=== PATIENT | male | born 1945 | race Caucasian/White ===

== ENCOUNTER 2017-10-06 08:04 | Emergency (ER) | payer OTHER ==
[~2017-10-06] VITALS: Ht 172.7 cm; Wt 77.1 kg
[2017-10-06 08:09] VITALS: BP 142/80
--- NOTE | 2017-10-06 08:43 | RADIOLOGY REPORT ---
EXAMINATION: XR CHEST CLINICAL INFORMATION: Fever and productive cough. Evaluate for pneumonia. COMPARISON: Previous chest x-rays most recent October 2013 TECHNIQUE: 2 views of the chest were obtained. FINDINGS: The cardiac and mediastinal contours are normal. The lungs are clear. There is no pleural effusion or pneumothorax. There are degenerative changes of the spine. IMPRESSION: No evidence of pneumonia.
[2017-10-06] MEDS ORDERED: CHERATUSSIN AC118 M1 PO ×2 (09:21→09:23)
[2017-10-06] MEDS ORDERED: TAMIFLU75 M1 PO ×2 (09:21→09:24)
[2017-10-06] MEDS ORDERED: PROAIR HFA8.5 GM INH ×2 (09:21→09:24)
--- NOTE | 2017-10-06 09:22 | ED INFLUENZA/URI COMPLAINT ---
History of Present Illness General Chief Complaint: Upper Respiratory Sx/Fever Stated Complaint: BAD COUGH, "I HAVE A BAD HEAD COLD" Source: patient, family, old records Exam Limitations: no limitations Vital Signs & Intake/Output Vital Signs & Intake/Output Vital Signs Date Time Temp Pulse Resp B/P B/P Pulse O2 O2 Flow FiO2 Mean Ox Delivery Rate 10/06 0940 101.3 10/06 0809 101.3 105 15 142/80 95 Room Air Room Air Allergies Coded Allergies: MDX - Apple (APPLE) (ITCHY THROAT 10/06/17) Uncoded Allergies: PEACHES (UNKNOWN REACTION 10/15/13) Reconcile Medications Albuterol Sulfate (Proair Hfa) 90 MCG HFA.AER.AD 2 PUF INH Q4-6 PRN PRN bronchitis Codeine Phosphate/Guaifenesi (Cheratussin AC Syrup) 10 MG-100 MG/5 ML LIQUID 5 -10 ML PO Q6P PRN cough Oseltamivir Phosphate (Tamiflu) 75 MG CAPSULE 1 CAP PO BID influenza Triage Note: PT TO ED FOR C/C OF PRODUCTIVE YELLOW COUGH X 1 WEEK. SAW A WALK IN AND GIVEN TESSALON PEARLS WITHOUT RELIEF. 101.3 IN TRIAGE. INCREASED URINARY FREQUENCY AND 3/10 PERIUMBILICAL ABD PAIN. Triage Nurses Notes Reviewed? yes Onset: Last week Duration: day(s):, constant, continues in ED, getting worse Timing: recent history Severity: moderate Prior Episodes/Possible Cause: illness exposure No Modifying Factors: none Associated Symptoms: cough, fever/chills, lightheadedness, muscle aches, nasal congestion, nasal drainage HPI: 1 week prior to admission patient complains of decreased appetite harsh cough he was seen and prescribed Tessalon. 2 days prior to admission he complains of chills continued cough myalgia. He denies fever vomiting diarrhea chest pain shortness of breath headache dysuria rash bleeding. Past History Travel History Traveled to [place] past 21 day No Medical History Any Pertinent Medical History? 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 No Review of Systems Review of Systems Constitutional: Reports: see HPI, chills, malaise. EENTM: Reports: see HPI, nasal congestion. Respiratory: Reports: see HPI, cough. Cardiovascular: Reports: no symptoms. GI: Reports: see HPI, nausea. Genitourinary: Reports: no symptoms. Musculoskeletal: Reports: no symptoms. Skin: Reports: no symptoms. Neurological/Psychological: Reports: no symptoms. Hematologic/Endocrine: Reports: no symptoms. Immunologic/Allergic: Reports: no symptoms. All Other Systems: Reviewed and Negative Physical Exam Physical Exam General Appearance: well developed/nourished, alert, awake, anxious, mild distress Head: atraumatic, normal appearance Eyes: Bilateral: normal appearance, PERRL, EOMI. Ears, Nose, Throat: moist mucous membrane, nasal congestion, nasal drainage, pharyngeal erythema Neck: normal inspection, supple, full range of motion, trachea midline, lymphadenopathy (R), lymphadenopathy (L) Respiratory: normal breath sounds, chest non-tender, no respiratory distress, quiet respiration, lungs clear Cardiovascular: regular rate/rhythm, normal peripheral pulses, norml femoral pulses equa Peripheral Pulses: 4+ carotid (R), 4+ carotid (L) Gastrointestinal: normal bowel sounds, soft, non-tender, no organomegaly Back: normal inspection, normal range of motion, no vertebral tenderness Extremities: normal inspection, normal capillary refill, normal range of motion, no edema Neurologic/Psych: no motor/sensory deficits, awake, alert, oriented x 3, normal gait, normal mood/affect, kiln stoker II-XII nml as tested Reflexes: 2+: bicep (R), bicep (L). Skin: intact, normal color, warm/dry Lymphatic: adenopathy Core Measures Sepsis Present: No Sepsis Focused Exam Completed? No Progress Differential Diagnosis: influenza, otitis, pharyngitis, sinusitis Plan of Care: Orders Procedure Date/time Status URINALYSIS 10/06 820 Complete RAPID VIRAL INFLUENZA A 10/06 812 Complete VIRAL CULTURE 10/06 812 Active Current Medications Sig/Adams Start time Last Medication Dose Stop Time Status Admin Oseltamivir Phosphate 75 MG ONCE ONE 10/06 929 CAN (Tamiflu 75MG) 10/06 930 Laboratory Tests 10/06/17827: Urine Color YEL, Urine Clarity CLEAR, Urine pH 6.0, Ur Specific [place] 1.025, Urine Protein TRACE H, Urine Ketones 40 H, Urine Nitrite NEG, Urine Bilirubin NEG, Urine Urobilinogen 0.2, Ur Leukocyte Esterase NEG, Ur Microscopic SEDIMENT EXAMINED, Urine RBC 1-3, Urine WBC RARE, Ur Epithelial Cells RARE, Urine Mucus FEW, Urine Hemoglobin SMALL H, Urine Glucose NEG 10/06/17 0813: Virus Culture Pending Microbiology 10/06 814 NASOPHARYN: Influenza Virus A & B Rapid Smear - COMP INFLUENZA TYPE B Diagnostic Imaging: Viewed by Me: Radiology Read. Discussed w/RAD: Radiology Read. CXR Impression: no acute abnormality, no infiltrates Initial ED EKG: none Departure Departure Time of Disposition: 919 Disposition: HOME OR SELF CARE Condition: Stable Clinical Impression Primary Impression: Influenza B Referrals: Otilio FRY,Shayne Thomas (PCP/Family) Departure Forms: Customer Survey General Discharge Information Prescriptions: Current Visit Scripts Codeine Phosphate/Guaifenesi (Cheratussin AC Syrup) 5-10 ML PO Q6P PRN cough #240 ML Oseltamivir Phosphate (Tamiflu) 1 CAP PO BID #10 CAP Albuterol Sulfate (Proair Hfa) 2 PUF INH Q4-6 PRN PRN bronchitis #1 INHAL
== END 2017-10-06 09:43 ==
LOC: ERH 08:04
DX: J10.1 Influenza due to other identified influenza virus with other respiratory manifestations (principal)
CPT/HCPCS: 71046; 81001; 87804; 87804-59

== ENCOUNTER 2017-10-23 06:54 | Inpatient (IN) | payer OTHER ==
[~2017-10-23] VITALS: Ht 177.8 cm; Wt 72.6 kg
[~2017-10-23 06:54] MED LIST: CHERATUSSIN AC118 M1 PO; PROAIR HFA8.5 GM INH; TAMIFLU75 M1 PO
--- NOTE | 2017-10-23 07:15 | ED GI/GU/ABDOMINAL COMPLAINT ---
History of Present Illness General Chief Complaint: General Adult Stated Complaint: ?GI BLEED Source: patient, family, EMS Exam Limitations: no limitations Vital Signs & Intake/Output Vital Signs & Intake/Output Vital Signs Date Time Temp Pulse Resp B/P B/P Pulse O2 O2 Flow FiO2 Mean Ox Delivery Rate 10/23 1017 97.0 82 20 898/51 96 Room Air 10/23 0754 75 99/56 10/23 0754 97 10/23 0737 84 110/66 10/23 0700 95.7 126 16 90/60 97 Room Air Room Air Allergies Coded Allergies: apple (ITCHY THROAT 10/23/17) peach (UNKNOWN 10/23/17) PEACHES - UNKNOWN REACTION Reconcile Medications Clopidogrel Bisulfate (Clopidogrel) 75 MG TABLET 1 TAB PO DAILY BLOOD THINNER (Reported) Isosorbide Mononitrate (Isosorbide Mononitrate ER) 30 MG TAB.ER.24H 1 TAB PO DAILY HEART (Reported) Lisinopril 5 MG TABLET 1 TAB PO DAILY HEART (Reported) Metoprolol Tartrate 25 MG TABLET 1 TAB PO BID HEART (Reported) Rosuvastatin Calcium (Crestor) 10 MG TABLET 1 TAB PO DAILY CHOLESTEROL ( Reported) Triage Note: TRIAGE: PATIENT TO ER FROM HOME REPORTING 4-5 BLACK TARRY STOOLS OVER THE COURSE OF THE NIGHT. PATIENT'S SISTER IS WITH HIM. REPORTING VERY SLIGHT HEADACHE, DENIES ABD PAIN, DENIES N/V. Triage Nurses Notes Reviewed? yes Onset: SINCE 10 PM Duration: hour(s): (SEVERAL) Timing: multiple episodes today Location: [facility] Activities at Onset: rest No Modifying Factors: none Associated Symptoms: weakness, SOB, SYNCOPAL EPISODE HPI: This is a 72-year-old male with history of hypertension, coronary artery disease , approximately 8 cardiac stents presents to the ER with his sister via EMS for chief complaint of weakness, 4 episodes of black stool. Reports mild lower abdominal cramping prior to the first bowel movement but no pain since then. He states he also got himself on the floor of his bedroom this morning. He is unsure what happened. He reports feeling weak, short of breath with exertion. Denies any chest pain or palpitations. He is on aspirin and Plavix. Last dose was last evening. No history of GI bleed in the past before. In addition to aspirin and Plavix was using ibuprofen 400 mg approximately twice a week day for the past week secondary to headache. Last dose of ibuprofen was on Saturday. Patient has never had a GI evaluation, endoscopy or colonoscopy in the past before. He is a nondrinker. Past History Travel History Traveled to [place] past 21 day No Medical History Any Pertinent Medical History? 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 No Review of Systems Review of Systems Constitutional: Reports: weakness. Denies: chills, fever. EENTM: Reports: no symptoms. Respiratory: Reports: short of breath. Denies: cough, sputum production. Cardiovascular: Reports: syncope. Denies: chest pain, palpitations. GI: Denies: abdominal pain. Genitourinary: Reports: no symptoms. Musculoskeletal: Reports: no symptoms. Skin: Reports: no symptoms. Neurological/Psychological: Reports: no symptoms. Hematologic/Endocrine: Reports: bleeding. Denies: bruising, polyuria, polydipsia. Immunologic/Allergic: Denies: splenectomy. All Other Systems: Reviewed and Negative Physical Exam Physical Exam General Appearance: well developed/nourished, alert, awake, mild distress Head: atraumatic, normal appearance Eyes: Bilateral: PERRL, EOMI. Ears, Nose, Throat, Mouth: hearing grossly normal, moist mucous membrane Neck: normal inspection, supple, full range of motion Respiratory: normal breath sounds, chest non-tender, no respiratory distress Cardiovascular: regular rate/rhythm, normal peripheral pulses Gastrointestinal: normal bowel sounds, soft, non-tender Rectal: DARK BROWN OB POSITIVE Back: normal inspection, normal range of motion Extremities: normal range of motion Neurologic/Psych: no motor/sensory deficits, awake, alert, oriented x 3, normal mood/affect Skin: pallor Core Measures ACS in differential dx? Yes Sepsis Present: No Sepsis Focused Exam Completed? No Progress Differential Diagnosis: PUD/GERD, GI BLEED, ANEMIA, SYNCOPE Plan of Care: Orders Procedure Date/time Status CBC WITHOUT DIFFERENTIAL 10/24 0600 Active BASIC ELECTROLYTES PLUS BUN&CR 10/24 0600 Active Nothing by Mouth 10/23 L Active TROPONIN LEVEL 10/23 2000 Active CBC WITHOUT DIFFERENTIAL 10/23 2000 Active EKG 10/23 2000 Active TROPONIN LEVEL 10/23 1400 Active CBC WITHOUT DIFFERENTIAL 10/23 1400 Active EKG 10/23 1400 Active RAPID VIRAL INFLUENZA A 10/23 1002 Active LACTIC ACID 10/23 1000 Active Pathway - chart 10/23 0933 Active Pathway - chart 10/23 0932 Active House Staff 10/23 0932 Active Patient Data 10/23 0932 Active Code Status 10/23 0932 Active Patient Data 10/23 0825 Active ED Holding Orders 10/23 0816 Active Admit to inpatient 10/23 0816 Active Vital Signs 10/23 0816 Active Code Status 10/23 0816 Complete Add-on Test (ER Only) 10/23 0733 Active MISTAKE 10/23 0733 Active Telemetry/Natural Resource Manager 10/23 0733 Active LACTIC ACID 10/23 0721 Complete TROPONIN LEVEL 10/23 0700 Complete PARTIAL THROMBOPLASTIN TIME 10/23 0700 Active PROTHROMBIN TIME 10/23 0700 Active LIPASE 10/23 0700 Complete HEPATIC FUNCTION PANEL 10/23 0700 Complete CBC WITHOUT DIFFERENTIAL 10/23 0700 Complete BASIC METABOLIC PANEL 10/23 0700 Complete AMYLASE 10/23 0700 Complete EKG 10/23 0700 Active TYPE & SCREEN (NOT X-MATCH) 10/23 0700 Complete Intake & Output 10/23 0659 Active VTE Mechanical Prophylaxis 10/23 UNK Active Vital Signs 10/23 UNK Active MISTAKE 10/23 UNK Active Telemetry/Natural Resource Manager 10/23 UNK Active Current Medications Sig/Adams Start time Last Medication Dose Stop Time Status Admin Isosorbide 30 MG DAILY 10/24 1000 CAN Mononitrate (Imdur) Lisinopril 5 MG DAILY 10/24 1000 CAN (Prinivil) Metoprolol Tartrate 25 MG BID 10/23 2200 CAN (Lopressor) Atorvastatin Calcium 10 MG 1700 10/23 1700 AC (Lipitor) Pantoprazole Sodium 40 MG DAILY 10/23 1000 AC (Protonix) Acetaminophen 650 MG Q6P PRN 10/23 0945 AC (Tylenol) Acetaminophen 1,000 MG Q6P PRN 10/23 0945 AC (Ofirmev) Oxycodone/ 1 TAB Q6P PRN 10/23 0945 AC Acetaminophen (Percocet) Sodium Chloride 1,000 ML ONCE ONE 10/23 0945 AC (Normal Saline 0.9%) 10/23 2304 Sodium Chloride 1,000 ML ONCE ONE 10/23 0815 AC 10/23 (Normal Saline 0.9%) 10/23 1454 0832 Laboratory Tests 10/23/17 0721: Anion Gap 11, Estimated GFR > 60, BUN/Creatinine Ratio 76.7 H, Glucose 156 H, Lactic Acid 3.0 H, Calcium 8.8, Total Bilirubin 0.5, Direct Bilirubin 0.2, AST 18, ALT 22, Alkaline Phosphatase 54, Troponin I 0.01, Total Protein 4.9 L, Albumin 2.8 L, Amylase 70, Lipase 249, CBC w Diff NO MAN DIFF REQ, RBC 3.13 L, MCV 96.2 H, MCH 32.5 H, MCHC 33.8, RDW 14.0, MPV 8.0, Gran % 90.7 H, Lymphocytes % 6.3 L, Monocytes % 2.8, Eosinophils % 0.1, Basophils % 0.1, Absolute Granulocytes 9.7 H, Absolute Lymphocytes 0.7 L, Absolute Monocytes 0.3, Absolute Eosinophils 0, Absolute Basophils 0 Microbiology 10/23 1002 NASOPHARYN: Influenza Virus A & B Rapid Smear - ORD PATIENT WILL BE ADMITTED FOR GI BLEED/SYNCOPE TO TELE. D/W DR CORRALES IN ED. ADMITTED TO HOSPITALIST. Diagnostic Imaging: Viewed by Me: Radiology Read. Discussed w/RAD: Radiology Read. CXR Impression: PATIENT: TARA SAMS PRESENT AGE: 72 PATIENT ACCOUNT NO: [id number] : 43 LOCATION: [facility] ORDERING PHYSICIAN: Jorge Gotti MD SERVICE DATE: 10/23/17 EXAM TYPE: RAD - XRY- PORTABLE CHEST XRAY EXAMINATION: XR PORTABLE CHEST CLINICAL INFORMATION: GI bleed COMPARISON: 10/06/2017 TECHNIQUE: Portable frontal view of the chest was obtained. FINDINGS: Lungs are clear. No focal consolidation or mass. Normal pulmonary vascularity. No pleural effusion or pneumothorax. Normal heart size. Regional skeleton intact. IMPRESSION: No acute pulmonary disease. DICTATED BY: Adiel Jimenez MD DATE/TIME DICTATED:10/23/17738 PLATE CORRECTOR:NAOMI DATE/TIME TRANSCRIBED:10/23/17738 CONFIDENTIAL, DO NOT COPY WITHOUT APPROPRIATE AUTHORIZATION. <Electronically signed in Other Vendor System> SIGNED BY: Adiel Jimenez MD 10/23/1743 Initial ED EKG: NSR, LAD Departure Departure Time of Disposition: 808 Disposition: STILL A PATIENT Condition: Stable Clinical Impression Primary Impression: GI bleed Secondary Impressions: Lactic acid acidosis, Syncopal episodes Referrals: Otilio FRY,Shayne Thomas (PCP/Family) Departure Forms: Customer Survey General Discharge Information Admission Note Spoke With: Amy FRY,Petrona Documentation of Exam: Documentation of any treatments & extenuating circumstances including Concerns Regarding Discharge (functional status, medication knowledge or non-compliance, living conditions, etc.) that warrant an admission rather than observation: [ MONITOR H/H, IV FLUIDS, PROTONIX, GI CONSULTATION FOR GI BLEED, SERIAL EKG/ TROPONIN, CARDIOLOGY EVALUATION
[2017-10-23 07:32] LABS: ABSOLUTE BASOPHIL COUNT 0 /CUMM (0.0-0.2); ABSOLUTE EOSINOPHIL COUNT 0 /CUMM (0.0-0.7); ABSOLUTE GRANULOCYTE CT 9.7 /CUMM (1.4-6.5); ABSOLUTE LYMPH COUNT 0.7 /CUMM (1.2-3.4); ABSOLUTE MONOCYTE COUNT 0.3 /CUMM (0.10-0.60); BASOPHIL % 0.1 % (0.0-2.0); EOSINOPHIL % 0.1 % (0-5); HEMATOCRIT 30.1 % (42-52); MEAN CORPUSCULAR HGB 32.5 PG (27.0-31.0); MEAN CORPUSCULAR HGB CONC 33.8 G/DL (33.0-37.0); MEAN CORPUSCULAR VOLUME 96.2 FL (80.0-94.0); RED BLOOD CELL CT 3.13 /CUMM (4.70-6.10); WHITE BLOOD CELL COUNT 10.7 /CUMM (4.8-10.8)
--- NOTE | 2017-10-23 07:43 | RADIOLOGY REPORT ---
EXAMINATION: XR PORTABLE CHEST CLINICAL INFORMATION: GI bleed COMPARISON: 10/06/2017 TECHNIQUE: Portable frontal view of the chest was obtained. FINDINGS: Lungs are clear. No focal consolidation or mass. Normal pulmonary vascularity. No pleural effusion or pneumothorax. Normal heart size. Regional skeleton intact. IMPRESSION: No acute pulmonary disease.
[2017-10-23 07:58] LABS: PLATELET COUNT 320 /CUMM (130-400)
[2017-10-23 07:59] LABS: GRANULOCYTE % 90.7 % (42.2-75.2)
[2017-10-23] MEDS ORDERED: METOPROLOL TART25 M1 PO (08:09)
[2017-10-23] MEDS ORDERED: ISOSORBIDE MONO30 M1 PO (08:09)
[2017-10-23] MEDS ORDERED: CLOPIDOGREL75 M1 PO (08:09)
[2017-10-23] MEDS ORDERED: LISINOPRIL5 M1 PO (08:10)
[2017-10-23] MEDS ORDERED: CRESTOR10 M1 PO (08:10)
--- NOTE | 2017-10-23 09:29 | History & Physical ---
Narendra Gastelum 10/23/17 0928: General Information and HPI MD Statement: I have seen and personally examined TARA SAMS and documented this H&P. The patient is a 72 year old M who presented with a patient stated chief complaint of black tarry stools since last evening. Source of Information: patient, family Exam Limitations: no limitations History of Present Illness: This is a 72-year-old male with past medical history significant for coronary artery disease status post bare metal stents 4, on dual antiplatelet agents aspirin and Plavix since 1995, hypertension, hyperlipidemia presented to the [facility] emergency department for evaluation of black tarry stools since last evening. Patient reports 5 episodes of black colored tarry stools since last evening. Prior to that stool color was normal. He denied any nausea, vomiting, hematemesis, hematochezia, bright red blood per rectum. Also reports lower abdominal cramps associated with defecation. Patient was admitted to [facility] in October 2013 for syncope, melena, and anemia. Underwent endoscopy which showed gastroparesis, gastric polyp, large blood clot in the duodenal bulb. Never underwent colonoscopy. Flexible sigmoidoscopy was done many years back and he was found to have hemorrhoids. Patient also reports decreased appetite and weight loss of 10 pounds in last 2 weeks. Patient reports generalized weakness and lightheadedness. According to him, had an episode of syncope last night. He was found on the floor after losing consciousness. This was unwitnessed syncope. According to him he felt dizzy and lightheaded prior to that event. He denied any seizures, tongue bite, stool or urinary incontinence. No post event confusion. He continues to report lightheadedness and dizziness in the emergency room. Of note patient has been having cough for the last 3 weeks. He was seen in [place] emergency room one week back and was treated for flu with Tamiflu. He has been taking ibuprofen 800 mg twice daily for last week for headaches. Denied any chest pain, palpitations, fever, chills, constipation, diarrhea, nausea, vomiting, gait changes. Review of systems was negative except for above. Denied smoking, alcohol abuse, illicit drug abuse. Family history significant for heart attack father and breast cancer in sister. He lives at home and takes care of himself. 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 Allergies/Medications Allergies: Coded Allergies: apple (ITCHY THROAT 10/23/17) peach (UNKNOWN 10/23/17) PEACHES - UNKNOWN REACTION Home Med list Clopidogrel Bisulfate (Clopidogrel) 75 MG TABLET 1 TAB PO DAILY BLOOD THINNER (Reported) Isosorbide Mononitrate (Isosorbide Mononitrate ER) 30 MG TAB.ER.24H 1 TAB PO DAILY HEART (Reported) Lisinopril 5 MG TABLET 1 TAB PO DAILY HEART (Reported) Metoprolol Tartrate 25 MG TABLET 1 TAB PO BID HEART (Reported) Rosuvastatin Calcium (Crestor) 10 MG TABLET 1 TAB PO DAILY CHOLESTEROL ( Reported) Compliance With Home Meds: GOOD Past History Travel History Traveled to [place] past 21 day No Medical History Neurological: NONE EENT: NONE Cardiovascular: hypertension, hyperlipidemia, myocardial infarction Respiratory: NONE Gastrointestinal: NONE Hepatic: NONE Renal: NONE Musculoskeletal: NONE Psychiatric: NONE Endocrine: NONE Blood Disorders: NONE Cancer(s): NONE 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 Denies: chills, diaphoresis, fever, malaise, unexplained weight loss. EENTM: Denies: blurred vision, double vision, visual changes. Cardiovascular: Reports: syncope. Denies: chest pain, edema, orthopena, palpitations, peripheral edema. Respiratory: Reports: cough, short of breath. Denies: hemoptysis, orthopnea, sputum production, stridor, wheezing. GI: Reports: abdominal pain, melena. Denies: bloating, constipation, diarrhea, nausea, bloody stool, changes in stool. Genitourinary: Denies: discharge, dysuria, frequency, hematuria. Musculoskeletal: Denies: back pain, gout, joint pain, joint swelling. Neurological/Psychological: Denies: anxiety, ataxia. Exam & Diagnostic Data Last 24 Hrs of Vital Signs/I&O Vital Signs Date Time Temp Pulse Resp B/P B/P Pulse O2 O2 Flow FiO2 Mean Ox Delivery Rate 10/23 0754 75 99/56 10/23 0754 97 10/23 0737 84 110/66 10/23 0700 95.7 126 16 90/60 97 Room Air Room Air Intake & Output 10/23 1600 10/23 0800 10/23 0000 Intake Total 1000 Output Total Balance 1000 Intake, IV 1000 Patient 74.843 kg Weight Weight Reported by Patient Measurement Method Physical Exam General Appearance Alert, Oriented X3, Cooperative, No Acute Distress Skin No Rashes, No Breakdown, No Significant Lesion Skin Temp/Moisture Exam: Warm/Dry Sepsis Skin Exam (color): Normal for Ethnicity HEENT Atraumatic, PERRLA, EOMI, Mucous Membr. moist/pink Neck Supple, No JVD Lymphatic Axillary nl, Cervical nl Cardiovascular Regular Rate, Normal S1, Normal S2, No Murmurs Lungs Normal Air Movement Abdomen Normal Bowel Sounds, Soft, No Tenderness Neurological Strength at 5/5 X4 Ext, Sensation Intact, Cranial Nerves 3-12 NL, Reflexes 2+ Extremities No Clubbing, No Cyanosis, No Edema Vascular Normal Pulses, Pulses Symmetrical Sepsis Peripheral Pulse Location: Radial Sepsis Peripheral Pulse Exam: Normal Sepsis Cap Refill Exam: <2 Sec Last 24 Hrs of Labs/Uriel: Laboratory Tests 10/23/17 0721: Anion Gap 11, Estimated GFR > 60, BUN/Creatinine Ratio 76.7 H, Glucose 156 H, Lactic Acid 3.0 H, Calcium 8.8, Total Bilirubin 0.5, Direct Bilirubin 0.2, AST 18, ALT 22, Alkaline Phosphatase 54, Troponin I 0.01, Total Protein 4.9 L, Albumin 2.8 L, Amylase 70, Lipase 249, CBC w Diff NO MAN DIFF REQ, RBC 3.13 L, MCV 96.2 H, MCH 32.5 H, MCHC 33.8, RDW 14.0, MPV 8.0, Gran % 90.7 H, Lymphocytes % 6.3 L, Monocytes % 2.8, Eosinophils % 0.1, Basophils % 0.1, Absolute Granulocytes 9.7 H, Absolute Lymphocytes 0.7 L, Absolute Monocytes 0.3, Absolute Eosinophils 0, Absolute Basophils 0 Diagnostic Data EKG Results EKG, sinus rhythm, rate 87, left axis deviation, bifid P waves, QTC [address]- T wave changes CXR Results Chest x-ray was normal Assessment/Plan Assessment: This is a 72-year-old male with past medical history significant for coronary artery disease status post bare metal stents 4, on dual antiplatelet agents aspirin and Plavix since 1995, hypertension, hyperlipidemia presented to the [facility] emergency department for evaluation of black tarry stools since last evening. Vitals afebrile, heart rate 126, respiratory rate 16, blood pressure 90/60, saturating at 97 on ra. Pertinent labs WBC 10.7, hemoglobin 10.2 and hematocrit 30.1, platelets 320, BUN 16 and creatinine 0.9 XL lactic acid 3 LFTs normal except troponin normal Amylase and lipase normal Received 2 L of normal saline bolus in the emergency room, Protonix. Chest x-ray was normal EKG 87, left axis deviation, no ST-T wave changes. Problem list 1. Upper GI bleed 2. Syncope 3. Lactic acidosis 4. Stable CAD 5. Hypertension 6. Hyperlipidemia Upper GI bleed Patient presented with acute onset of 4-5 episodes of upper GI bleed with black colored tarry stools. Of note he is on dual antiplatelet agents aspirin and Plavix since 1995. Of note patient reports using ibuprofen for last 1 week for headaches. Upper GI bleed/melena most possibly from use of NSAIDS on the top of dual antiplatelet agents. Vitals were stable except for borderline blood pressure. He was found to have elevated BUN and lactic acid at the time of admission. * Upper GI bleed/melena possible differentials gastritis from ibuprofen usage, peptic ulcer disease, AV malformation. * Admit to telemetry floor for continuous telemetry monitoring * vitals every shift * Type and screen was done * Serial monitoring of hemoglobin and hematocrit * 2 large IV bore lines * IV Protonix * IV fluids gentle hydration given his borderline blood pressure * Please hold aspirin and Plavix for now and follow up cardiology recommendations * Please hold using any NSAIDS. * Check orthostatic blood pressure * Maintain hemoglobin above 8 * Stool guaiac-positive in ER * Patient is nothing by mouth pending Gastro evaluation * Please follow-up gastroenterology recommendations * Follow-up CBCs at 2 PM and 8 PM Syncope Patient reports generalized weakness and lightheadedness. According to him, had an episode of syncope last night. He was found on the floor after losing consciousness. This was unwitnessed syncope. According to him he felt dizzy and lightheaded prior to that event. He denied any seizures, tongue bite, stool or urinary incontinence. No post event confusion. He continues to report lightheadedness and dizziness in the emergency room. * Syncope most possibly from active GI bleed and dehydration given his elevated BUN * Telemetry monitoring * Troponin and EKG normal at the time of admission * Serial troponin and EKG 2 PM and 8 PM follow-up * Cardiology consulted with Dr. Gloria * Follow-up orthostatic vitals Lactic acidosis Lactic acid 3 at the time of admission. Mostly from dehydration and GI bleed. Provide gentle hydration and repeat lactic acid. 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 GI bleed 2. Syncopal episodes Core Measures/Misc (05/26) Acute Coronary Syndrome ACS Diagnosis: No Congestive Heart Failure Congestive Heart Failure Diagnosis No Cerebrovascular Accident CVA/TIA Diagnosis: No VTE (View Protocol) VTE Risk Factors No risk factors No Mechanical VTE Prophylaxis d/t Medical Contraindication No VTE Pharm Prophylaxis d/t Bleeding (Active) Sepsis (View protocol) Sepsis Present: No Michael Simon MD 10/23/176: Attending MD Review Statement Attending Statement Attending MD Statement: examined this patient, discuss w/resident/PA/CANCER PROGRAM CONSULTANT, agreed w/resident/PA/CANCER PROGRAM CONSULTANT, discussed with family, reviewed EMR data (avail), reviewed images, amended to note Attending Assessment/Plan: The patient is a 72 yo male with a h/o CAD (s/p bare metal stents - ?since 1995- perhaps more recent one), on [facility] dual antiplatelet therapy (ASA/Plavix) with h/o HTN, HL, and h/o prior duodenal ulcer (EGD with Dr. Bennett), who presented in the [place] ED today with c/o 5 episodes of black tarry stool since last evening. He did note mild lower abdominal cramps. No hematemesis, no bright red blood per rectum. He also described a syncopal episode last evening and he was found on the floor. He noted feeling lightheaded prior to the event. He has endorsed feeling generally weak. He denied any chest pain, dyspnea, or palpitations. The patient had been diagnosed with influenza one week prior and had taken Tamiflu. He admits that he was also taking Ibuprofen 800 mg bid for headaches associated with the flu. Physical Exam: VS: T 95.7, P 126-75, R 16, BP 90/60-110/66, PO 97% HEENT: eyes- PERRLA, EOMI tyesha- moist mucosa, no lesions Neck: no JVD/bruits Chest: clear Cor: RRR (at time of my exam post hydration), nl S1, S2 w/o murm Abd: BS+, soft, NT, - HSM Ext: no edema, pulses 2+ Neuro: alert & oriented x 3, non-focal exam Labs/Tests- as above Impression/Plan: #Acute Gastrointestinal Bleeding- c/w UGI bleed. Most likely recurrent duodenal ulcer. The patient had been taking Ibuprofen x 1 week along with his normal dual platelet drugs (Plavix/ASA). Has h/o bleed in 2013 and was cauterized via EGD by Dr. Bennett. Other possibilities include hemorrhagic gastritis, AVM, other PUDs. Plan: Admit to telemetry floor. IV Protonix bid. Hold ASA/Plavix. Type & Screen for PRBC and follow serial H/H (next at 2 pm today). GI consult- Dr. Bennett to arrange EGD. If begins bleeding profusely will need ICU/emergent EGD. NPO until decision regarding EGD. IV fluids. #S/P Syncopal Event- As above, had syncope last pm. The patient did have orthostatic symptoms and was hypotensive on presentation in ED. No arrhthmia on EKG or monitor at present. No palpitations or evidence of seizures. Neuro exam is non-focal. Plan: Admit to telemetry service and watch for rhythm disturbance. Check orthostatic vital signs. Hold anti-hypertensive meds at present. #CAD- s/p bare metal stents (none recent). No ischemic symptoms or ischemic findings on EKG. Plan: Cardiology consult- hold ASA/Plavix at present. Maintain Hgb > 8. Monitor on telemetry. #Lactic Acidosis- no evidence of sepsis. Plan: Follow-up lactate after hydration.
[2017-10-23 11:35] LABS: PT 14.4 SEC (9.4-12.5); PTT 27 SEC (25-37)
--- NOTE | 2017-10-23 12:09 | Cons- Cardiology ---
General Information and HPI Consulting Request Date of Consult: 10/23/17 Requested By: Amy FRY,Petrona Reason for Consult: GI bleeding. Source of Information: patient, old records Exam Limitations: poor historian History of Present Illness: Mr. dUay Diaz is a 72-year-old male with a history of dyslipidemia and coronary artery disease, s/p CA's x3 (1994, 2000, 2006) with multiple stents placed for which he is maintained on dual antiplatelet therapy (ASA, clopidogrel ) and who presented to the ED with an upper GI bleed. The patient reports having headaches over the past week and admits to taking NSAIDs (ibuprofen 800 mg twice daily), but states that he was asymptomatic with normal bowel habits and color of stool until last evening (10/22/2017) when he began experiencing lower abdominal cramping with defecation and had 5 episodes of black tarry stools. He admits to generalized weakness, lightheadedness, and states that these symptoms preceded an unwitnessed syncopal episode last night after which is was found floor. He denied any postevent confusion, oral trauma or other trauma, or incontinence of urine/stool. He also admits to experiencing a cough over the last 3 weeks and was seen in the ED last week and was [facility] emergency room one week back for this and was treated with Tamiflu for presumed influenza. He denies any chest discomfort, palpitations, shortness of breath, orthopnea, paroxysmal nocturnal dyspnea, or claudication. He also denies any fevers feelings, chills, nausea, vomiting, diarrhea, etc. He lives alone and is independent. Allergies/Medications Allergies: Coded Allergies: apple (ITCHY THROAT 10/23/17) peach (UNKNOWN 10/23/17) PEACHES - UNKNOWN REACTION Home Med List: Clopidogrel Bisulfate (Clopidogrel) 75 MG TABLET 1 TAB PO DAILY BLOOD THINNER (Reported) Isosorbide Mononitrate (Isosorbide Mononitrate ER) 30 MG TAB.ER.24H 1 TAB PO DAILY HEART (Reported) Lisinopril 5 MG TABLET 1 TAB PO DAILY HEART (Reported) Metoprolol Tartrate 25 MG TABLET 1 TAB PO BID HEART (Reported) Rosuvastatin Calcium (Crestor) 10 MG TABLET 1 TAB PO DAILY CHOLESTEROL ( Reported) Current Medications: Current Medications Sig/Adams Start time Last Medication Dose Route Stop Time Status Admin Acetaminophen 650 MG Q6P PRN 10/23 0945 AC PO Acetaminophen 1,000 MG Q6P PRN 10/23 0945 AC IV Atorvastatin Calcium 10 MG 1700 10/23 1700 AC PO Isosorbide 30 MG DAILY 10/24 1000 CAN Mononitrate PO Lisinopril 5 MG DAILY 10/24 1000 CAN PO Metoprolol Tartrate 25 MG BID 10/23 2200 CAN PO Oxycodone/ 1 TAB Q6P PRN 10/23 0945 AC Acetaminophen PO Pantoprazole Sodium 40 MG DAILY 10/23 1000 AC IV Pantoprazole Sodium 0 .STK-MED ONE 10/23 0803 DC IV Pantoprazole Sodium 40 MG ONCE ONE 10/23 0745 DC 10/23 IV 10/23 0746 0804 Sodium Chloride 1,000 ML ONCE ONE 10/23 0945 AC IV 10/23 2304 Sodium Chloride 500 ML BOLUS ONE 10/23 0815 DC 10/23 IV 10/23 0914 0832 Sodium Chloride 1,000 ML ONCE ONE 10/23 0815 AC 10/23 IV 10/23 1454 0832 Sodium Chloride 500 ML BOLUS ONE 10/23 0800 DC 10/23 IV 10/23 0859 0804 Review of Systems Review of Systems: A 14 point system review was obtained and was noncontributory, other than as above. 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 Surgical History Surgical History: non-contributory Family History Relations & Conditions If Any: FATHER FH: heart attack SISTER FH: breast cancer Psychosocial History Services at Home: None Smoking Status: Never Smoked ETOH Use: occasional use Illicit Drug Use: denies illicit drug use Exam & Diagnostic Data Vital Signs and I&O Vital Signs Date Time Temp Pulse Resp B/P B/P Pulse O2 O2 Flow FiO2 Mean Ox Delivery Rate 10/23 1106 97.0 92 18 82/47 96 Room Air 10/23 1017 97.0 82 20 898/51 96 Room Air 10/23 0754 75 99/56 10/23 0754 97 10/23 0737 84 110/66 10/23 0700 95.7 126 16 90/60 97 Room Air Room Air Intake & Output 10/23 0800 10/23 0000 10/22 1600 10/22 0800 10/22 0000 Intake Total 1000 Output Total Balance 1000 Intake, IV 1000 Patient 165 lb Weight Weight Reported by Patient Measurement Method Physical Exam: Well-developed, well-nourished and pale appearing elderly male in no acute distress. Vital signs: See above. HEENT: Normocephalic, atraumatic, EOMI, slightly dry mucous membranes. Neck: No JVD, no bruits. Lungs: Clear to auscultation bilaterally. Heart: S1, S2 (regular) with no murmur, gallop, or rub. Abdomen: Soft, nontender, positive bowel sounds. Extremities: No edema. Labs/Uriel Results: Laboratory Tests 10/23 10/23 1103 0721 Chemistry Sodium (137 - 145 mmol/L) 144 Potassium (3.5 - 5.1 mmol/L) 4.3 Chloride (98 - 107 mmol/L) 112 H Carbon Dioxide (22 - 30 mmol/L) 21 L Anion Gap (5 - 16) 11 BUN (9 - 20 mg/dL) 69 H Creatinine (0.7 - 1.2 mg/dL) 0.9 Estimated GFR (>60 ml/min) > 60 BUN/Creatinine Ratio (7 - 25 %) 76.7 H Glucose (65 - 99 mg/dL) 156 H Lactic Acid (0.7 - 2.1 mmol/L) 1.2 3.0 H Calcium (8.4 - 10.2 mg/dL) 8.8 Total Bilirubin (0.2 - 1.3 mg/dL) 0.5 Direct Bilirubin (< 0.4 mg/dL) 0.2 AST (17 - 59 U/L) 18 ALT (21 - 72 U/L) 22 Alkaline Phosphatase (< 127 U/L) 54 Troponin I (<0.11 ng/ml) 0.01 Total Protein (6.3 - 8.2 g/dL) 4.9 L Albumin (3.5 - 5.0 g/dL) 2.8 L Amylase (30 - 110 U/L) 70 Lipase (23 - 300 U/L) 249 Coagulation PT (9.4 - 12.5 SEC) 14.4 H INR (0.90 - 1.17) 1.38 H APTT (25 - 37 SEC) 27 Hematology CBC w Diff NO MAN DIFF REQ WBC (4.8 - 10.8 /CUMM) 10.7 RBC (4.70 - 6.10 /CUMM) 3.13 L Hgb (14.0 - 18.0 G/DL) 10.2 L Hct (42 - 52 %) 30.1 L MCV (80.0 - 94.0 FL) 96.2 H MCH (27.0 - 31.0 PG) 32.5 H MCHC (33.0 - 37.0 G/DL) 33.8 RDW (11.5 - 14.5 %) 14.0 Plt Count (130 - 400 /CUMM) 320 MPV (7.4 - 10.4 FL) 8.0 Gran % (42.2 - 75.2 %) 90.7 H Lymphocytes % (20.5 - 51.1 %) 6.3 L Monocytes % (1.7 - 9.3 %) 2.8 Eosinophils % (0 - 5 %) 0.1 Basophils % (0.0 - 2.0 %) 0.1 Absolute Granulocytes (1.4 - 6.5 /CUMM) 9.7 H Absolute Lymphocytes (1.2 - 3.4 /CUMM) 0.7 L Absolute Monocytes (0.10 - 0.60 /CUMM) 0.3 Absolute Eosinophils (0.0 - 0.7 /CUMM) 0 Absolute Basophils (0.0 - 0.2 /CUMM) 0 Diagnostic Data EKG Results 10/23/2017: Sinus rhythm, leftward axis, probable indeterminate age inferior wall CA, borderline T-wave abnormalities in diffuse leads, borderline QT prolongation. CXR Results 10/23/2017: No acute cardiopulmonary process. Assessment/Plan Assessment/Plan [id number] w/ hx HLD & CAD s/p CA's x3 (1994, 2000, 2006) w/ multiple stents placed for which he has maintained on dual antiplatelet therapy (ASA, clopidogrel) and who presented to the ED with an upper GI bleed. Recommendations: * Admit to telemetry, follow-up troponins, follow-up ECG. * Hold antiplatelet therapy for the short-term. * Given extensive cardiac history change in hemoglobin at or above 8.0 g/dl. * GI consultation. * Continue on his other cardiac medications given his extensive history of CAD. * Echocardiogram to reassess left ventricular function, given history of multiple MIs in the past. * Check magnesium, free T4, TSH, glycosylated hemoglobin A1c, etc. * DVT prophylaxis. Consult Acknowledgment - Thank you for your consult request.
[2017-10-23 16:07] LABS: ABSOLUTE BASOPHIL COUNT 0 /CUMM (0.0-0.2); ABSOLUTE EOSINOPHIL COUNT 0 /CUMM (0.0-0.7); ABSOLUTE GRANULOCYTE CT 2.9 /CUMM (1.4-6.5); ABSOLUTE LYMPH COUNT 1.3 /CUMM (1.2-3.4); ABSOLUTE MONOCYTE COUNT 0.4 /CUMM (0.10-0.60); BASOPHIL % 0.8 % (0.0-2.0); EOSINOPHIL % 0.2 % (0-5); GRANULOCYTE % 62.4 % (42.2-75.2); HEMATOCRIT 26.1 % (42-52); MEAN CORPUSCULAR HGB 32.8 PG (27.0-31.0); MEAN CORPUSCULAR HGB CONC 34.2 G/DL (33.0-37.0); MEAN CORPUSCULAR VOLUME 95.9 FL (80.0-94.0); MEAN PLATELET VOLUME 7.9 FL (7.4-10.4); PLATELET COUNT 229 /CUMM (130-400); RBC DISTRIBUTION WIDTH 13.8 % (11.5-14.5); RED BLOOD CELL CT 2.72 /CUMM (4.70-6.10)
[2017-10-23 16:08] LABS: WHITE BLOOD CELL COUNT 4.7 /CUMM (4.8-10.8)
--- NOTE | 2017-10-23 16:39 | Cons- Gastroenterology ---
General Information and HPI Consulting Request Date of Consult: 10/23/17 Requested By: Michael Simon MD Reason for Consult: I was notified mid-morning of a request by the hospitalist service to assess melena vs. dark brown, OB+ stool in a patient on ASA, Plavix, & Ibuprofen. Source of Information: patient, old records Exam Limitations: poor historian, cardiology records elsewhere History of Present Illness: 72 y/o male, poor historian & non-compliant with GI follow-up, remotely seen by myself in inpatient GI consultation for UGI bleed 10/14/13, while on ASA/Plavix. His cardiology records are in the [place] area, as he is followed there by Dr. Mahesh Morales. He sees Dr. Yañez for primary care. The patient is non-HTN, non-DM, HLD with ASHD, post NC x 3. He apparently had NC x 3 in 1994, 2000, & 2006. He had at least 3 bare metal stents placed, one in RCA in 2000, on full strength ASA & Plavix since. Apparently, his last cardiac stent was in 2010 at [facility]. We do not have copies of [facility] cardiac catheterization report. *The patient now stated that he "may have had another stent placed sometime after he was last here in 10/2013," but he was an extremely poor historian. *He may be correct, as apparently, he was transfered to [facility] from [facility] 10/15/13, for a 10/15/13: troponin bump 0.41. The patient was last admitted to [facility] 10/14/13 to 10/15/13, with syncope & melena, requiring transfusion 1u PRBC on 10/14/13 (which the patient could not recall). He required suturing of an eyebrow laceration then. I saw the patient in GI consultation 10/14/13 for melena. 10/14/13: *Upper endoscopy to the second portion of the duodenum with Epinephrine injection, BICAP cautery and clipping x1- ASSESSMENT: 1. Large red clot at the base of the duodenal bulb with normal duodenal sweep. Ampulla not seen. 2. Clot suctioned off base of duodenal bulb with underlying bleeding red spot as the obvious source (i.e.- *Dieulafoy lesion), treated with Epinephrine, BICAP cautery and clipping x1, with cessation of bleed. 3. Incidental patent lower esophageal ring at the Z line at 39 cm, left intact. 4. 2 cm hiatal hernia pouch from 39 to 41 cm, without any Rodriguez erosions. 5. Old blood and food coating a portion of the proximal stomach in the gastric cardia and fundus, 90% of which was cleared, representing possible underlying gastroparesis. 6. 6 mm probable inflammatory gastric polyp in the fundus, left intact, due to active bleeding from the duodenal bulb. *The patient was subsequently transferred to [facility] on 10/15/13 for a troponin elevation. *I do not have any details of that hospitalization & do not know if he had any interventional cardiac procedures then. I had previously advised a stool Ag H. pylori during the 10/2013 [facility] admission, which was never sent. Regarding the questrionable gastroparesis, 01/20: nl TSH 0.789, borderline HgbA1C 6.0. The patient was noncompliant then with a suggested follow-up outpatient EGD in 2 months to recheck the proximal stomach, nor with an outpatient baseline colonoscopy, nor an outpatient gastric scintiscan. The above had been discussed with the patient's ex-, Lani, the patient's daughter, February, & the patient's sister, Xenia Shaw, postoperatively in great detail, on 10/14/13, as per patient request. The patient came to the [facility] ER 10/06/17 with flu-like symptoms, headache, low grade temp, and a dry cough alternating with yellow sputum. 10/06/17: CXR- negative, except DJD. He tested positive for Influenza Type B [place] line & was D/C to home on Tamiflu. Please note, although previously being told never to do so, he took Ibuprofen 800 mg po BID x > 1 week then for the flu, as he "saw a commercial for this". *This was done in conjunction with his ASA & Plavix. He apparently had stopped his PPI sometime in 2013! The patient presented to the [facility] ER 10/23/17 at 6:54 AM, complaining of 4-5 episodes of black tarry stool overnight (he had dark brown, OB+ stool in the ER, per Dr. Rob). Upon arrival, BP 90/60, P 126, R 16, T 95.7 (Tm 99.3), O2 sat RA 97%. His hypotension & tachycardia improved after IVF. He was given IV Protonix (not continuous drip) & IV NS in the ER. His initial H/H (10.2/30.1), were realtively stable compared to his [facility] labs from 4 years prior, but his BUN/Cr ratio was elevated 69/0.9 (* see labs). He denied using any Fe or Pepto Bismol to account for the dark stool. He had generalized weakness and lightheadedness. 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 He denied any seizures, tongue biting, fecal incontinence, urinary incontinence, post-ictal confusion, or recurrent head trauma. He denied any chest pain, shortness of breath, palpitations, fevers, chills, or jaundice. He denied any cigarettes (ex-5-pk yr cigarette smoker, D/C 1961), alcohol, or illicit drug use. He denied any GERD, odynophagia, dysphagia, early satiety, hematemesis, hemoptysis, gum bleeding, epistaxis, abdominal pain, diarrhea, constipation, obstipation, tenesmus, change in stool caliber, or rectal bleeding. He noted decreased appetite over the past couple of weeks, rigidity to the flu, including total was 10 pounds during that period. There was no FHx of any GI Ca, PUD, additional GI disease, or inherited liver disease. *The patient was seen in covering GI consultation by Dr. Gloria, who did not have the latest information from the patient's usual maintenance pipefitter, Dr. Mahesh Morales. I spoke to Dr. Gloria shortly after 5 p.m. on 10/23/17, who will try to obtain the latest cardiac history from Dr. Mahesh Morales. Dr. Gloria agreed with temporarily holding the aspirin and Plavix for now. 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 10/23/17: Admission labs 7:21 a.m.- WBC 10.7 (91% gran, 10 gran Ab), H/H 10.2/ 30.1, MCV 96.2, RDW 14, PLT 320, glucose 156, BUN/Cr 69/0.9, GFR > 60, Na 144, K 4.3, HCO3 21, AG 11, + lactate 3.0-> 1.2, nl amylase 70, nl lipase 249, Ca 8.8, alb 2.8, glob 2.1, TBil 0.5, DBil 0.2, alk phos 54, AST 18, ALT 22, troponin 0.01 10/23/17: 11:03 a.m.- PT 14.4, INR 1.38 10/23/17: 2:28 p.m.- Mg 1.8, troponin < 0.01, TSH 0.508 10/23/17: 4:00 p.m.- WBC 4.7, H/H 8.9/26.1, MCV 95.9, RDW 13.8, PLT 229 10/23/17: EKG at 7:21 a.m.- NSR @ 87, LAD, borderline prolonged QT interval, NSST inflat. 10/23/17: EKG at 2:35 p.m.- NSR @ 89, otherwise similar to above. 10/23/17: XRY-PORTABLE CHEST XRAY- No acute pulmonary disease. Allergies/Medications Allergies: Coded Allergies: apple (ITCHY THROAT 10/23/17) peach (UNKNOWN 10/23/17) PEACHES - UNKNOWN REACTION Home Med List: Clopidogrel Bisulfate (Clopidogrel) 75 MG TABLET 1 TAB PO DAILY BLOOD THINNER (Reported) Isosorbide Mononitrate (Isosorbide Mononitrate ER) 30 MG TAB.ER.24H 1 TAB PO DAILY HEART (Reported) Lisinopril 5 MG TABLET 1 TAB PO DAILY HEART (Reported) Metoprolol Tartrate 25 MG TABLET 1 TAB PO BID HEART (Reported) Rosuvastatin Calcium (Crestor) 10 MG TABLET 1 TAB PO DAILY CHOLESTEROL ( Reported) Current Medications: Current Medications Sig/Adams Start time Last Medication Dose Route Stop Time Status Admin Acetaminophen 650 MG Q6P PRN 10/23 0945 AC PO Acetaminophen 1,000 MG Q6P PRN 10/23 0945 AC IV Atorvastatin Calcium 10 MG 1700 10/23 1700 AC 10/23 PO 1855 Isosorbide 30 MG DAILY 10/24 1000 CAN Mononitrate PO Lisinopril 5 MG DAILY 10/24 1000 CAN PO Metoprolol Tartrate 25 MG BID 10/23 2199 CAN PO Oxycodone/ 1 TAB Q6P PRN 10/23 0945 AC Acetaminophen PO Pantoprazole Sodium 40 MG BID 10/23 2199 AC IV Pantoprazole Sodium 40 MG DAILY 10/23 1000 DC IV Pantoprazole Sodium 0 .STK-MED ONE 10/23 0803 DC IV Pantoprazole Sodium 40 MG ONCE ONE 10/23 0745 DC 10/23 IV 10/23 0746 0804 Sodium Chloride 1,000 ML ONCE ONE 10/23 0945 AC 10/23 IV 10/23 2304 1405 Sodium Chloride 500 ML BOLUS ONE 10/23 0815 DC 10/23 IV 10/23 0914 0832 Sodium Chloride 1,000 ML ONCE ONE 10/23 0815 DC 10/23 IV 10/23 1454 0832 Sodium Chloride 500 ML BOLUS ONE 10/23 0800 DC 10/23 IV 10/23 0859 0804 Past History Travel History Traveled to [place] past 21 day No Medical History Blood Transfusion Hx: Yes (10/14/13) Neurological: NONE EENT: NONE Cardiovascular: CAD, hypertension, hyperlipidemia, myocardial infarction, syncope Respiratory: NONE Gastrointestinal: upper GI bleed (10/14/13: Dieulafoy in bulb) Hepatic: NONE Renal: NONE Musculoskeletal: falls (syncope) Psychiatric: NONE Endocrine: NONE Blood Disorders: NONE Cancer(s): NONE 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 FH: heart attack SISTER (post breast Ca). Age 72. FH: breast cancer MOTHER, , Age 92; Cause: Old age. BROTHER (ASHD- onset 50's). Age 72. Psychosocial History Where Do You Live? Home Who Do You Live With? ex-, Lani Diaz Services at Home: None Primary Language: Japanese Smoking Status: Former Smoker ETOH Use: occasional use Illicit Drug Use: denies illicit drug use Living Will? no Power of Greenskeeper Supervisor/HCP? no Other Social History: . Lives with ex-, Lani Diaz. Remote 5 pk yr cigarette smoker, D /C 1961. Rare EtOH. No illicit drugs. 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 Functional Ability ADLs Independent: dressing, eating, toileting, bathing. Ambulation: independent IADLs Independent: shopping, housework, finances, food prep, telephone, transportation , medication admin. 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 Review of Systems Constitutional: Reports: weakness (post flu). Denies: chills, diaphoresis, fever, malaise, unexplained weight loss. EENTM: Denies: blurred vision, double vision, visual changes, eye pain, eye drainage, eye tearing, icterus, ear discharge, ear pain, ear redness, hearing changes, nasal congestion, epistaxis, nasal pain, throat pain, throat swelling, mouth pain, tooth pain. 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 Denies: chest pain, edema, orthopena, palpitations, peripheral edema. Respiratory: Reports: cough (dry). Denies: no symptoms, see HPI, hemoptysis, orthopnea, short of breath, sputum production, stridor, wheezing. GI: Reports: melena. Denies: abdominal pain, bloating, constipation, diarrhea, distention, bowel incontinence, nausea, bloody stool, changes in stool, vomiting , steatorrhea. Genitourinary: Denies: discharge, dysuria, frequency, hematuria, hesitation, nocturia, pain, urgency. Musculoskeletal: Denies: back pain, gout, joint pain, joint swelling, muscle pain, muscle stiffness, neck pain. Skin: Denies: cysts, change in skin color, change in hair/nails, dryness, erythema, jaundice, lesions, lymphangitis, lumps, moles, rash. Neurological/Psychological: Denies: anxiety, ataxia, cognitive dysfunction, confusion, depressed, dementia, emotional problems, headache, numbness, paresthesia, pre-existing deficit, petit mal seizures, tingling, tremors, tonic-clonic seizures, unable to move lower ext , unable to move upper ext, weakness. Hematologic/Endocrine: Denies: bruising, bleeding, polyuria, polydipsia. Immunologic/Allergic: Denies: splenectomy, HIV/AIDS, lymphadenopathy. All Other Systems: Reviewed and Negative Exam & Diagnostic Data Vital Signs and I&O Vital Signs Date Time Temp Pulse Resp B/P B/P Pulse O2 O2 Flow FiO2 Mean Ox Delivery Rate 10/23 1817 98.0 88 18 98/83 100 Room Air 10/23 1722 99.3 63 16 103/59 95 10/23 1600 86 16 102/58 Room Air 10/23 1452 97.0 89 18 98/62 96 Room Air 10/23 1333 98.0 94 98/74 10/23 1106 97.0 92 18 82/47 96 Room Air 10/23 1017 97.0 82 20 89/56 96 Room Air 10/23 0754 75 99/56 10/23 0754 97 10/23 0737 84 110/66 10/23 0700 95.7 126 16 90/60 97 Room Air Room Air Intake & Output 10/23 1600 10/23 0400 10/22 1600 10/22 0400 10/21 1600 10/21 0400 Intake Total 1000 Output Total Balance 1000 Intake, IV 1000 Patient 165 lb Weight Weight Reported by Patient Measurement Method Physical Exam: Well-developed well-nourished, pleasant elderly male, in no apparent distress. Sclera anicteric. Conjunctiva slightly pale. Oropharynx clear. Poor dentition.No oral thrush. No aphthous ulcers. There is no adenopathy, thyromegaly, or JVD. No peripheral stigmata of inflammatory bowel disease or chronic liver disease on exam. No spiders on the anterior chest wall. No gynecomastia. No CVA tenderness. Lungs: clear to A&P. No wheezing, rales, or rhonchi. Heart exam: regular rate rhythm, S1 and S2, without any murmur. Abdominal exam: normal bowel sounds, soft belly, nontender, without guarding or rebound. No mass. No organomegaly. No fluid shift. No pulsatile mass. Digital rectal exam: per Dr. Rob in the ER 10/23/17: dark brown stool, OB- positive, no BRB. Extremities: without C, C, or E. No palpable cords. + DJD. Distal pulses 2+ bilaterally. DTRs 2+ bilaterally. Alert and oriented x 3. Right handed. Motor: 5/5 B/L. No focal deficitd. No tremor. No asterixis. Results Pertinent Lab Results: Laboratory Tests 10/23 10/23 10/23 1600 1448 1103 Chemistry Hemoglobin A1c (4.2 - 5.8 %) Pending Lactic Acid (0.7 - 2.1 mmol/L) 1.2 Magnesium (1.6 - 2.3 mg/dL) 1.8 Troponin I (<0.11 ng/ml) < 0.01 TSH (0.270 - 4.200 uIU/mL) 0.508 Coagulation PT (9.4 - 12.5 SEC) 14.4 H INR (0.90 - 1.17) 1.38 H APTT (25 - 37 SEC) 27 Hematology CBC w Diff NO MAN DIFF REQ WBC (4.8 - 10.8 /CUMM) 4.7 L RBC (4.70 - 6.10 /CUMM) 2.72 L Hgb (14.0 - 18.0 G/DL) 8.9 L Hct (42 - 52 %) 26.1 L MCV (80.0 - 94.0 FL) 95.9 H MCH (27.0 - 31.0 PG) 32.8 H MCHC (33.0 - 37.0 G/DL) 34.2 RDW (11.5 - 14.5 %) 13.8 Plt Count (130 - 400 /CUMM) 229 MPV (7.4 - 10.4 FL) 7.9 Gran % (42.2 - 75.2 %) 62.4 Lymphocytes % (20.5 - 51.1 %) 28.5 Monocytes % (1.7 - 9.3 %) 8.1 Eosinophils % (0 - 5 %) 0.2 Basophils % (0.0 - 2.0 %) 0.8 Absolute Granulocytes (1.4 - 6.5 /CUMM) 2.9 Absolute Lymphocytes (1.2 - 3.4 /CUMM) 1.3 Absolute Monocytes (0.10 - 0.60 /CUMM) 0.4 Absolute Eosinophils (0.0 - 0.7 /CUMM) 0 Absolute Basophils (0.0 - 0.2 /CUMM) 0 10/23 0721 Chemistry Sodium (137 - 145 mmol/L) 144 Potassium (3.5 - 5.1 mmol/L) 4.3 Chloride (98 - 107 mmol/L) 112 H Carbon Dioxide (22 - 30 mmol/L) 21 L Anion Gap (5 - 16) 11 BUN (9 - 20 mg/dL) 69 H Creatinine (0.7 - 1.2 mg/dL) 0.9 Estimated GFR (>60 ml/min) > 60 BUN/Creatinine Ratio (7 - 25 %) 76.7 H Glucose (65 - 99 mg/dL) 156 H Lactic Acid (0.7 - 2.1 mmol/L) 3.0 H Calcium (8.4 - 10.2 mg/dL) 8.8 Total Bilirubin (0.2 - 1.3 mg/dL) 0.5 Direct Bilirubin (< 0.4 mg/dL) 0.2 AST (17 - 59 U/L) 18 ALT (21 - 72 U/L) 22 Alkaline Phosphatase (< 127 U/L) 54 Troponin I (<0.11 ng/ml) 0.01 Total Protein (6.3 - 8.2 g/dL) 4.9 L Albumin (3.5 - 5.0 g/dL) 2.8 L Amylase (30 - 110 U/L) 70 Lipase (23 - 300 U/L) 249 Hematology CBC w Diff NO MAN DIFF REQ WBC (4.8 - 10.8 /CUMM) 10.7 RBC (4.70 - 6.10 /CUMM) 3.13 L Hgb (14.0 - 18.0 G/DL) 10.2 L Hct (42 - 52 %) 30.1 L MCV (80.0 - 94.0 FL) 96.2 H MCH (27.0 - 31.0 PG) 32.5 H MCHC (33.0 - 37.0 G/DL) 33.8 RDW (11.5 - 14.5 %) 14.0 Plt Count (130 - 400 /CUMM) 320 MPV (7.4 - 10.4 FL) 8.0 Gran % (42.2 - 75.2 %) 90.7 H Lymphocytes % (20.5 - 51.1 %) 6.3 L Monocytes % (1.7 - 9.3 %) 2.8 Eosinophils % (0 - 5 %) 0.1 Basophils % (0.0 - 2.0 %) 0.1 Absolute Granulocytes (1.4 - 6.5 /CUMM) 9.7 H Absolute Lymphocytes (1.2 - 3.4 /CUMM) 0.7 L Absolute Monocytes (0.10 - 0.60 /CUMM) 0.3 Absolute Eosinophils (0.0 - 0.7 /CUMM) 0 Absolute Basophils (0.0 - 0.2 /CUMM) 0 Imaging/Other Studies: 10/23/17: EKG at 7:21 a.m.- NSR @ 87, LAD, borderline prolonged QT interval, NSST inflat. 10/23/17: EKG at 2:35 p.m.- NSR @ 89, otherwise similar to above. 10/23/17: XRY-PORTABLE CHEST XRAY- No acute pulmonary disease. Assessment/Plan Assessment/Recommendations: 72 y/o male, poor historian & non-compliant with GI follow-up, remotely seen by myself in inpatient GI consultation for UGI bleed 10/14/13, while on ASA/Plavix. His cardiology records are in the [place] area, as he is followed there by Dr. Mahesh Morales. He sees Dr. Yañez for primary care. The patient is non-HTN, non-DM, HLD with ASHD, post NC x 3. He apparently had NC x 3 in 1994, 2000, & 2006. He had at least 3 bare metal stents placed, one in RCA in 2000, on full strength ASA & Plavix since. Apparently, his last cardiac stent was in 2010 at [facility]. We do not have copies of sandoval cardiac catheterization report. *The patient now stated that he "may have had another stent placed sometime after he was last here in 10/2013," but he was an extremely poor historian. *He may be correct, as apparently, he was transfered to [facility] from [facility] 10/15/13, for a 10/15/13: troponin bump 0.41. The patient was last admitted to [facility] 10/14/13 to 10/15/13, with syncope & melena, requiring transfusion 1u PRBC on 10/14/13 (which the patient could not recall). He required suturing of an eyebrow laceration then. I saw the patient in GI consultation 10/14/13 for melena. 10/14/13: *Upper endoscopy to the second portion of the duodenum with Epinephrine injection, BICAP cautery and clipping x1- ASSESSMENT: 1. Large red clot at the base of the duodenal bulb with normal duodenal sweep. Ampulla not seen. 2. Clot suctioned off base of duodenal bulb with underlying bleeding red spot as the obvious source (i.e.- *Dieulafoy lesion), treated with Epinephrine, BICAP cautery and clipping x1, with cessation of bleed. 3. Incidental patent lower esophageal ring at the Z line at 39 cm, left intact. 4. 2 cm hiatal hernia pouch from 39 to 41 cm, without any Rodriguez erosions. 5. Old blood and food coating a portion of the proximal stomach in the gastric cardia and fundus, 90% of which was cleared, representing possible underlying gastroparesis. 6. 6 mm probable inflammatory gastric polyp in the fundus, left intact, due to active bleeding from the duodenal bulb. *The patient was subsequently transferred to [facility] on 10/15/13 for a troponin elevation. *I do not have any details of that hospitalization & do not know if he had any interventional cardiac procedures then. I had previously advised a stool Ag H. pylori during the 10/2013 [facility] admission, which was never sent. Regarding the questrionable gastroparesis, 01/20: nl TSH 0.789, borderline HgbA1C 6.0. The patient was noncompliant then with a suggested follow-up outpatient EGD in 2 months to recheck the proximal stomach, nor with an outpatient baseline colonoscopy, nor an outpatient gastric scintiscan. The above had been discussed with the patient's ex-, Lani, the patient's daughter, Candy, & the patient's sister, Xenia Shaw, postoperatively in great detail, on 10/14/13, as per patient request. The patient came to the [facility] ER 10/06/17 with flu-like symptoms, headache, low grade temp, and a dry cough alternating with yellow sputum. 10/06/17: CXR- negative, except DJD. He tested positive for Influenza Type B Isaac morales & was D/C to home on Tamiflu. Please note, although previously being told never to do so, he took Ibuprofen 800 mg po BID x > 1 week then for the flu, as he "saw a commercial for this". *This was done in conjunction with his ASA & Plavix. He apparently had stopped his PPI sometime in 2013! The patient presented to the [facility] 10/23/17 at 6:54 AM, complaining of 4-5 episodes of black tarry stool overnight (he had dark brown, OB+ stool in the ER, per Dr. Rob). Upon arrival, BP 90/60, P 126, R 16, T 95.7 (Tm 99.3), O2 sat RA 97%. His hypotension & tachycardia improved after IVF. He was given IV Protonix (not continuous drip) & IV NS in the ER. His initial H/H (10.2/30.1), were realtively stable compared to his [facility] labs from 4 years prior, but his BUN/Cr ratio was elevated 69/0.9 (* see labs). He denied using any Fe or Pepto Bismol to account for the dark stool. He had generalized weakness and lightheadedness. 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 He denied any seizures, tongue biting, fecal incontinence, urinary incontinence, post-ictal confusion, or recurrent head trauma. He denied any chest pain, shortness of breath, palpitations, fevers, chills, or jaundice. He denied any cigarettes (ex-5-pk yr cigarette smoker, D/C 1961), alcohol, or illicit drug use. He denied any GERD, odynophagia, dysphagia, early satiety, hematemesis, hemoptysis, gum bleeding, epistaxis, abdominal pain, diarrhea, constipation, obstipation, tenesmus, change in stool caliber, or rectal bleeding. He noted decreased appetite over the past couple of weeks, rigidity to the flu, including total was 10 pounds during that period. There was no FHx of any GI Ca, PUD, additional GI disease, or inherited liver disease. *The patient was seen in covering GI consultation by Dr. Gloria, who did not have the latest information from the patient's usual maintenance pipefitter, Dr. Mahesh Morales. I spoke to Dr. Gloria shortly after 5 p.m. on 10/23/17, who will try to obtain the latest cardiac history from Dr. Mahesh Morales. Dr. Gloria agreed with temporarily holding the aspirin and Plavix for now. 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 10/23/17: Admission labs 7:21 a.m.- WBC 10.7 (91% gran, 10 gran Ab), H/H 10.2/ 30.1, MCV 96.2, RDW 14, PLT 320, glucose 156, BUN/Cr 69/0.9, GFR > 60, Na 144, K 4.3, HCO3 21, AG 11, + lactate 3.0-> 1.2, nl amylase 70, nl lipase 249, Ca 8.8, alb 2.8, glob 2.1, TBil 0.5, DBil 0.2, alk phos 54, AST 18, ALT 22, troponin 0.01 10/23/17: 11:03 a.m.- PT 14.4, INR 1.38 10/23/17: 2:28 p.m.- Mg 1.8, troponin < 0.01, TSH 0.508 10/23/17: 4:00 p.m.- WBC 4.7, H/H 8.9/26.1, MCV 95.9, RDW 13.8, PLT 229 10/23/17: EKG at 7:21 a.m.- NSR @ 87, LAD, borderline prolonged QT interval, NSST inflat. 10/23/17: EKG at 2:35 p.m.- NSR @ 89, otherwise similar to above. 10/23/17: XRY-PORTABLE CHEST XRAY- No acute pulmonary disease. *With elevated BUN/Cr ratio of > 70:1 (although there could be a component of dehydration, post flu), hx melena (currently dark brown stool, OB-positive), past hx Dieulafoy lesion in duodenal bulb -> Epi/BiCAP/clip via 10/14/13: EGD (patient not compliant with suggested follow-up EGD, gastric scintiscan, or baseline colonoscopy afterwards), & recent Ibuprofen (post flu), superimposed on ASA/Plavix, most likely, UGI bleed, although no hematemesis. The strong history of ASHD is noted, post multiple NC x 3 (1994, 2000, 2006), with at least 3 bare metal stents placed, 1 in RCA in 2000. I was under the impression that his last stent was placed in 2010. *Of note, the patient was transferred to [facility] from [facility] 10/15/13, for possible repeat cardiac intervention, with troponin bump then. We do not have details of this. His cardiac records are with Dr. Mahesh Morales. 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 The patient was seen in covering cardiology consultation by Dr. Gloria on admission, who agreed with holding ASA & Plavix for now. He will try to get details of his most recent cardiac workup from Dr. Mahesh Morales. At the moment, the patient looked stable. He was tolerating clears. *SUGGEST: Clears po, then NPO post 11:59 P.M. on Sat10/23/17, for EGD on 10/24/17. The risks & benefits of EGD were discussed with the patient, and he wished to proceed. The procedure will be moved up, if clinically warranted. T&C 2u PRBC. Check CBC Q8-12h for now. With ASHD, keep Hgb > 8. Supplemental O2 as needed. Gentle IVF. Strict I/O's. *Please call GI [facility] if the patient becomes hemodynamically unstable or has active bleeding & move to ICU. Protonix 40 mg IV BID (if clinically warranted, can bump up to continuous drip at 8 mg/hr). No NSAIDS! ASA & Plavix on hold for now, per cardiology. Serial troponin & Echocardiogram, per Dr. Gloria. Awaiting telemetry bed. *Dr. 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 The patient has persistently refused baseline colonoscopy. If there is an UGI source, it will be up to him to schedule an outpatient colonoscopy. If there is no UGI source, would proceed with inpatient colonoscopy, as patient allows. DVT prophylaxis with mechanical ALPS. The above was discussed with the medical house staff, Dr. Simon, & Dr. Gloria. Further GI recommendations to follow, depending on clinical course. Problem List: 1. GI bleed 2. Melena 3. Syncopal episodes 4. History of NC (myocardial infarction) 5. Dieulafoy lesion of duodenum 6. Influenza B Copies To: Faizan FRY,Alfonzo Marcos; Aurora FRY,Michael; Andrew FRY,Mahesh Ford; Otilio FRY,Shayne Thomas Consult Acknowledgment - Thank you for your consult request.
[2017-10-23 21:30] VITALS: BP 98/58
--- NOTE | 2017-10-23 21:44 | Admission Certification ---
Admission Certification Certification Statement - As attending physician, I certify that at the time of - admission, based on clinical presentation, severity of - symptoms, need for further diagnostic testing and - therapeutic interventions, and risk of adverse outcomes - without in-hospital treatment, in my clinical assessment, - this patient requires an acute hospital stay for a minimum - of two nights or longer. I have also considered psychsocial - factors such as support system, advanced age, financial - issues, cognitive issues, and failed out-patient treatments, - past re-admission history, safety of patient, and lack of - compliance as applicable. Specific rationale supporting this admission is: The patient presents post syncopal event and with hypotension/orthostatic symptoms. Black stool c/w UGI bleed. Most likely recurrent DU secondary to Ibuprofen/ASA/Plavix. Will hold ASA/Plavix. IV protonix. Cardiology & GI consults. Maintain Hgb > 8. EGD. Monitor on telemetry. Serial H/H levels.
[2017-10-23 22:29] VITALS: BP 108/60
[2017-10-24 03:15] LABS: ABSOLUTE BASOPHIL COUNT 0 /CUMM (0.0-0.2); ABSOLUTE EOSINOPHIL COUNT 0 /CUMM (0.0-0.7); ABSOLUTE LYMPH COUNT 1.4 /CUMM (1.2-3.4); ABSOLUTE MONOCYTE COUNT 0.4 /CUMM (0.10-0.60); BASOPHIL % 0.3 % (0.0-2.0)
[2017-10-24 03:25] LABS: ABSOLUTE GRANULOCYTE CT 4.4 /CUMM (1.4-6.5); EOSINOPHIL % 0.4 % (0-5); MEAN CORPUSCULAR HGB 32.7 PG (27.0-31.0); MEAN CORPUSCULAR HGB CONC 33.9 G/DL (33.0-37.0); MEAN CORPUSCULAR VOLUME 96.6 FL (80.0-94.0); MEAN PLATELET VOLUME 8.1 FL (7.4-10.4); PLATELET COUNT 226 /CUMM (130-400); RBC DISTRIBUTION WIDTH 14.2 % (11.5-14.5); RED BLOOD CELL CT 2.16 /CUMM (4.70-6.10); WHITE BLOOD CELL COUNT 6.3 /CUMM (4.8-10.8)
[2017-10-24 03:37] LABS: HEMATOCRIT 20.9 % (42-52)
[2017-10-24 06:34] VITALS: BP 102/54
--- NOTE | 2017-10-24 09:27 | PN- Housestaff ---
See Addendum Subjective Follow-up For: Upper GI bleed Subjective: Patient was seen and examined today. Patient had gone down for an EGD. After which he reported a chronic cough for the past few weeks and sore throat. Patient denied any chest pain, palpitations, abdominal pain, fever/chills, nausea/vomiting, constipation/diarrhea. Review of Systems Constitutional: Reports: see HPI. Objective Last 24 Hrs of Vital Signs/I&O Vital Signs Date Time Temp Pulse Resp B/P B/P Pulse O2 O2 Flow FiO2 Mean Ox Delivery Rate 10/24 1440 99.0 97 16 92/50 96 Room Air 10/24 0634 98.6 86 18 102/54 100 Room Air 10/23 2152 Room Air 10/23 2130 98.3 87 18 98/58 99 Room Air 10/23 2057 77 16 103/59 100 Room Air Intake & Output 10/24 1600 10/24 0800 10/24 0000 Intake Total 20 100 200 Output Total 550 325 Balance -530 -225 200 Intake, IV 20 100 Intake, Oral 200 Output, Urine 550 325 Patient 160 lb Weight Weight Reported by Patient Measurement Method Physical Exam General Appearance: Alert, Oriented X3, Cooperative, No Acute Distress HEENT: Atraumatic, PERRLA, EOMI, Mucous Membr. moist/pink Cardiovascular: Regular Rate, Normal S1, Normal S2 Lungs: Clear to Auscultation, Normal Air Movement Abdomen: Normal Bowel Sounds, Soft, No Tenderness Neurological: Normal Speech Extremities: No Clubbing, No Cyanosis, No Edema, Normal Pulses, No Tenderness/ Swelling Current Medications: Current Medications Sig/Adams Start time Last Medication Dose Route Stop Time Status Admin Acetaminophen 650 MG Q6P PRN 10/23 0945 AC PO Acetaminophen 1,000 MG Q6P PRN 10/23 0945 AC IV Atorvastatin Calcium 10 MG 1700 10/23 1700 AC 10/24 PO 1704 Chlorhexidine 1 GM .STK-MED ONE 10/24 1329 DC Gluconate TOP 10/24 1330 Dextrose/Sodium 1,000 ML Q13H 10/24 1715 AC 10/24 Chloride IV 1842 Oxycodone/ 1 TAB Q6P PRN 10/23 0945 AC Acetaminophen PO Pantoprazole Sodium 80 MG Q10H 10/24 1430 AC 10/24 Dextrose/Water 100 ML IV 1704 Pantoprazole Sodium 40 MG BID 10/23 2200 AC 10/24 IV 0840 Patient Medication 1 ED ONE ONE 10/24 1415 DC Teaching ED 10/24 1416 Phenol 2 SPRAY Q2P PRN 10/24 1645 AC 10/24 EXT 1847 Sodium Chloride 1,000 ML ONCE ONE 10/23 0945 DC 10/23 IV 10/23 2304 1405 Last 24 Hrs of Lab/Uriel Results Last 24 Hrs of Labs/Mics: Laboratory Tests 10/24/17 1800: CBC w Diff Pending, WBC Pending, RBC Pending, Hgb Pending, Hct Pending, MCV Pending, MCH Pending, MCHC Pending, RDW Pending, Plt Count Pending, MPV Pending 10/24/17 1015: Anion Gap 10, Estimated GFR > 60, BUN/Creatinine Ratio 55.6 H, CBC w Diff NO MAN DIFF REQ, RBC 2.68 L, MCV 96.4 H, MCH 32.1 H, MCHC 33.3, RDW 13.8, MPV 7.9, Gran % 63.5, Lymphocytes % 29.3, Monocytes % 6.1, Eosinophils % 0.6, Basophils % 0.5, Absolute Granulocytes 2.9, Absolute Lymphocytes 1.3, Absolute Monocytes 0.3, Absolute Eosinophils 0, Absolute Basophils 0 10/24/17 0240: Troponin I 0.02, RBC 2.16 L, MCV 96.6 H, MCH 32.7 H, MCHC 33.9, RDW 14.2, MPV 8.1, Gran % 71.0, Lymphocytes % 21.9, Monocytes % 6.4, Eosinophils % 0.4, Basophils % 0.3, Absolute Granulocytes 4.4, Absolute Lymphocytes 1.4, Absolute Monocytes 0.4, Absolute Eosinophils 0, Absolute Basophils 0 Assessment/Plan Assessment: This is a 72-year-old male with past medical history significant for coronary artery disease status post bare metal stents 4, on dual antiplatelet agents aspirin and Plavix since 1995, hypertension, hyperlipidemia presented to the [facility] emergency department for evaluation of black tarry stools since last evening. Vitals afebrile, heart rate 126, respiratory rate 16, blood pressure 90/60, saturating at 97 on ra. Pertinent labs WBC 10.7, hemoglobin 10.2 and hematocrit 30.1, platelets 320, BUN 16 and creatinine 0.9 XL lactic acid 3 LFTs normal except troponin normal Amylase and lipase normal Received 2 L of normal saline bolus in the emergency room, Protonix. Chest x-ray was normal EKG 87, left axis deviation, no ST-T wave changes. Problem list 1. Upper GI bleed 2. Syncope 3. Lactic acidosis 4. Stable CAD 5. Hypertension 6. Hyperlipidemia Upper GI bleed Patient presented with acute onset of 4-5 episodes of upper GI bleed with black colored tarry stools. Of note he is on dual antiplatelet agents aspirin and Plavix since 1995. Of note patient reports using ibuprofen for last 1 week for headaches. Upper GI bleed/melena most possibly from use of NSAIDS on the top of dual antiplatelet agents. Vitals were stable except for borderline blood pressure. He was found to have elevated BUN and lactic acid at the time of admission. Today patient's H/H dropped to 7.1/20.9. Patient was given 1 pRBC. Repeat H/H: 8.6/25.8. * EGD today showed:duodenal ulcer at the floor of the duodenal bulb, with oozing artery and antral gastritis, hiatal hernia pouch * Admit to telemetry floor for continuous telemetry monitoring * vitals every shift * Type and screen was done * Serial monitoring of hemoglobin and hematocrit * 2 large IV bore lines * Protonix drip today * IV fluids gentle hydration given his borderline blood pressure * Please hold aspirin and Plavix for now and follow up cardiology recommendations * Please hold using any NSAIDS. * Check orthostatic blood pressure * Maintain hemoglobin above 8 * Stool guaiac-positive in ER * Patient is nothing by mouth today per GI recommendations. Patient will be started on a clear liquid diet if his H/H is stable today. Patient on D5W NS @ 75 cc/hr * Follow-up CBCs at 6 PM today Syncope Patient reports generalized weakness and lightheadedness. According to him, had an episode of syncope last night. He was found on the floor after losing consciousness. This was unwitnessed syncope. According to him he felt dizzy and lightheaded prior to that event. He denied any seizures, tongue bite, stool or urinary incontinence. No post event confusion. He continues to report lightheadedness and dizziness in the emergency room. * Syncope most possibly from active GI bleed and dehydration given his elevated BUN * Telemetry monitoring * Troponin and EKG normal * Cardiology consulted with Dr. Gloria * Follow-up orthostatic vitals * ECHO pending Lactic acidosis - resolved Lactic acid 3 at the time of admission. Mostly from dehydration and GI bleed. Provide gentle hydration and repeat lactic acid. * Continue IV fluids normal saline 75 mL per hour History of SD hx of SD 1995 s/p stents Cardiology consulted stable ACS, risk of ACS w/ GI bleed HOLD Plavix HOLD ASA c/w isosorbide and Metoprolol 25 mg po BID Please discuss with automation clerk regarding aspirin and Plavix at the time of discharge HLD c/w Atoruvastatin Hypertension Continue lisinopril 5 mg daily DVT prophylaxis ALPs Full code status npo for now. Advance diet tomorrow if h/h remains stable. Problem List: 1. GI bleed Pain Ratin Pain Location: NA Pain Goal: Remain pain free Pain Plan: Tylenol Tomorrow's Labs & Rationales: CBC BP
[2017-10-24 11:32] LABS: ABSOLUTE BASOPHIL COUNT 0 /CUMM (0.0-0.2); ABSOLUTE EOSINOPHIL COUNT 0 /CUMM (0.0-0.7); ABSOLUTE GRANULOCYTE CT 2.9 /CUMM (1.4-6.5); ABSOLUTE LYMPH COUNT 1.3 /CUMM (1.2-3.4); ABSOLUTE MONOCYTE COUNT 0.3 /CUMM (0.10-0.60); BASOPHIL % 0.5 % (0.0-2.0); EOSINOPHIL % 0.6 % (0-5); GRANULOCYTE % 63.5 % (42.2-75.2); HEMATOCRIT 25.8 % (42-52); MEAN CORPUSCULAR HGB 32.1 PG (27.0-31.0); MEAN CORPUSCULAR HGB CONC 33.3 G/DL (33.0-37.0); MEAN CORPUSCULAR VOLUME 96.4 FL (80.0-94.0); MEAN PLATELET VOLUME 7.9 FL (7.4-10.4); PLATELET COUNT 228 /CUMM (130-400); RBC DISTRIBUTION WIDTH 13.8 % (11.5-14.5); RED BLOOD CELL CT 2.68 /CUMM (4.70-6.10); WHITE BLOOD CELL COUNT 4.6 /CUMM (4.8-10.8)
--- NOTE | 2017-10-24 12:51 | PN- Gastroenterology ---
Assessment/Plan Assessment/Recommendations: 72 y/o male, poor historian & non-compliant with GI follow-up, remotely seen by myself in inpatient GI consultation for UGI bleed 10/14/13, while on ASA/Plavix. His cardiology records are in the [place] area, as he is followed there by Dr. Mahesh Morales. He sees Dr. Yañez for primary care. The patient is non-HTN, non-DM, HLD with ASHD, post RI x 3. He apparently had RI x 3 in 1994, 2000, & 2006. He had at least 3 bare metal stents placed, one in RCA in 2000, on full strength ASA & Plavix since. Apparently, his last cardiac stent was in 2010 at [facility]. We do not have copies of sandoval cardiac catheterization report. *The patient now stated that he "may have had another stent placed sometime after he was last here in 10/2013," but he was an extremely poor historian. *He may be correct, as apparently, he was transfered to [facility] from [place] 10/15/13, for a 10/15/13: troponin bump 0.41. The patient was last admitted to [facility] 10/14/13 to 10/15/13, with syncope & melena, requiring transfusion 1u PRBC on 10/14/13 (which the patient could not recall). He required suturing of an eyebrow laceration then. I saw the patient in GI consultation 10/14/13 for melena. 10/14/13: *Upper endoscopy to the second portion of the duodenum with Epinephrine injection, BICAP cautery and clipping x1- ASSESSMENT: 1. Large red clot at the base of the duodenal bulb with normal duodenal sweep. Ampulla not seen. 2. Clot suctioned off base of duodenal bulb with underlying bleeding red spot as the obvious source (i.e.- *Dieulafoy lesion), treated with Epinephrine, BICAP cautery and clipping x1, with cessation of bleed. 3. Incidental patent lower esophageal ring at the Z line at 39 cm, left intact. 4. 2 cm hiatal hernia pouch from 39 to 41 cm, without any Rodriguez erosions. 5. Old blood and food coating a portion of the proximal stomach in the gastric cardia and fundus, 90% of which was cleared, representing possible underlying gastroparesis. 6. 6 mm probable inflammatory gastric polyp in the fundus, left intact, due to active bleeding from the duodenal bulb. *The patient was subsequently transferred to [facility] on 10/15/13 for a troponin elevation. *I do not have any details of that hospitalization & do not know if he had any interventional cardiac procedures then. I had previously advised a stool Ag H. pylori during the 10/2013 [place] admission, which was never sent. Regarding the questrionable gastroparesis, 01/20: nl TSH 0.789, borderline HgbA1C 6.0. The patient was noncompliant then with a suggested follow-up outpatient EGD in 2 months to recheck the proximal stomach, nor with an outpatient baseline colonoscopy, nor an outpatient gastric scintiscan. The above had been discussed with the patient's ex-, Lani, the patient's daughter, Candy, & the patient's sister, Xenia Shaw, postoperatively in great detail, on 10/14/13, as per patient request. The patient came to the [place] ER 10/06/17 with flu-like symptoms, headache, low grade temp, and a dry cough alternating with yellow sputum. 10/06/17: CXR- negative, except DJD. He tested positive for Influenza Type B [place] line & was D/C to home on Tamiflu. Please note, although previously being told never to do so, he took Ibuprofen 800 mg po BID x > 1 week then for the flu, as he "saw a commercial for this". *This was done in conjunction with his ASA & Plavix. He apparently had stopped his PPI sometime in 2013! The patient presented to the [place] ER 10/23/17 at 6:54 AM, complaining of 4-5 episodes of black tarry stool overnight (he had dark brown, OB+ stool in the ER, per Dr. Rob). Upon arrival, BP 90/60, P 126, R 16, T 95.7 (Tm 99.3), O2 sat RA 97%. His hypotension & tachycardia improved after IVF. He was given IV Protonix (not continuous drip) & IV NS in the ER. His initial H/H (10.2/30.1), were realtively stable compared to his [place] labs from 4 years prior, but his BUN/Cr ratio was elevated 69/0.9 (* see labs). He denied using any Fe or Pepto Bismol to account for the dark stool. He had generalized weakness and lightheadedness. 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 He denied any seizures, tongue biting, fecal incontinence, urinary incontinence, post-ictal confusion, or recurrent head trauma. He denied any chest pain, shortness of breath, palpitations, fevers, chills, or jaundice. He denied any cigarettes (ex-5-pk yr cigarette smoker, D/C 1961), alcohol, or illicit drug use. He denied any GERD, odynophagia, dysphagia, early satiety, hematemesis, hemoptysis, gum bleeding, epistaxis, abdominal pain, diarrhea, constipation, obstipation, tenesmus, change in stool caliber, or rectal bleeding. He noted decreased appetite over the past couple of weeks, rigidity to the flu, including total was 10 pounds during that period. There was no FHx of any GI Ca, PUD, additional GI disease, or inherited liver disease. *The patient was seen in covering GI consultation by Dr. Gloria, who did not have the latest information from the patient's usual title officer, Dr. Mahesh Morales. I spoke to Dr. Gloria shortly after 5 p.m. on 10/23/17, who will try to obtain the latest cardiac history from Dr. Mahesh Morales. Dr. Gloria agreed with temporarily holding the aspirin and Plavix for now. 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 10/23/17: Admission labs 7:21 a.m.- WBC 10.7 (91% gran, 10 gran Ab), H/H 10.2/ 30.1, MCV 96.2, RDW 14, PLT 320, glucose 156, BUN/Cr 69/0.9, GFR > 60, Na 144, K 4.3, HCO3 21, AG 11, + lactate 3.0-> 1.2, nl amylase 70, nl lipase 249, Ca 8.8, alb 2.8, glob 2.1, TBil 0.5, DBil 0.2, alk phos 54, AST 18, ALT 22, troponin 0.01 10/23/17: 11:03 a.m.- PT 14.4, INR 1.38 10/23/17: 2:28 p.m.- Mg 1.8, troponin < 0.01, TSH 0.508 10/23/17: 4:00 p.m.- WBC 4.7, H/H 8.9/26.1, MCV 95.9, RDW 13.8, PLT 229 10/23/17: EKG at 7:21 a.m.- NSR @ 87, LAD, borderline prolonged QT interval, NSST inflat. 10/23/17: EKG at 2:35 p.m.- NSR @ 89, otherwise similar to above. 10/23/17: XRY-PORTABLE CHEST XRAY- No acute pulmonary disease. *With elevated BUN/Cr ratio of > 70:1 (although there could be a component of dehydration, post flu), hx melena (currently dark brown stool, OB-positive), past hx Dieulafoy lesion in duodenal bulb -> Epi/BiCAP/clip via 10/14/13: EGD (patient not compliant with suggested follow-up EGD, gastric scintiscan, or baseline colonoscopy afterwards), & recent Ibuprofen (post flu), superimposed on ASA/Plavix, most likely, UGI bleed, although no hematemesis. The strong history of ASHD is noted, post multiple RI x 3 (1994, 2000, 2006), with at least 3 bare metal stents placed, 1 in RCA in 2000. I was under the impression that his last stent was placed in 2010. *Of note, the patient was transferred to [facility] from [place] 10/15/13, for possible repeat cardiac intervention, with troponin bump then. We do not have details of this. His cardiac records are with Dr. Mahesh Morales. 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 The patient was seen in covering cardiology consultation by Dr. Gloria on admission, who agreed with holding ASA & Plavix for now. He will try to get details of his most recent cardiac workup from Dr. Mahesh Morales. At the moment, the patient looked stable. He was tolerating clears. 10/24/17: 2:40 a.m.- WBC 6.3, H/H 7.1/20.9, MCV 96.6, RDW 14.2, PL 226 10/24/17: 10:15 a.m.- WBC 4.6, H/H 8.6/25.8, PLT 228 (*post 1u PRBC on 10/24/17) , BUN/Cr 50/0.9, GFR > 60, Na 146, K 3.8, HCO3 22, AG 10, troponin 0.02 *As of 10/24/17, the patient remained with low normal BP. He was no longer tachycardic. He was afebrile (Tm 99.3), with O2 sat RA 100%. *He had received 1u PRBC earlier on 10/24/17 at 5:06 a.m.. for H/H 7.1/20.9. He had a dark bowel movement without any red blood. He denied any hematemesis, abdominal pain, nausea, vomiting, chest pain, palpitations, or shortness of breath. He was NPO for EGD. He tolerated clears po on 10/23/17. We are still awaiting the old cardiology records. 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 ASA & Plavix remained on hold , per discussion with Dr. Gloria. His BUN was trending down. He remained on IV Protonix 40 mg BID. He was on telemetry. *SUGGEST: NPO for EGD on 10/24/17. The risks & benefits of EGD were discussed with the patient, and he wished to proceed. The procedure will be moved up, if clinically warranted. T&C 2u PRBC. Check CBC Q8-12h for now. With ASHD, keep Hgb > 8. Supplemental O2 as needed. Gentle IVF. Strict I/O's. *Please call [facility] if the patient becomes hemodynamically unstable or has active bleeding & move to ICU. Protonix 40 mg IV BID (*if clinically warranted, can bump up to continuous drip at 8 mg/hr). No NSAIDS! ASA & Plavix on hold for now, per cardiology. Serial troponin & Echocardiogram, per Dr. Gloria. Admitted to telemetry. *Dr. Gloria is to get further information from the patient's usual title officer, Dr. Mahesh Morales. The patient has persistently refused baseline colonoscopy. If there is an UGI source, it will be up to him to schedule an outpatient screening colonoscopy. If there is no UGI source, would proceed with inpatient colonoscopy, as patient allows. DVT prophylaxis with mechanical ALPS. The above was discussed with the medical house staff, Dr. Simon, & Dr. Gloria. Further GI recommendations to follow, depending on clinical course. Problem List: 1. GI bleed 2. Melena 3. Syncopal episodes 4. History of RI (myocardial infarction) 5. Dieulafoy lesion of duodenum 6. Influenza B Subjective Subjective: 10/24/17: 2:40 a.m.- WBC 6.3, H/H 7.1/20.9, MCV 96.6, RDW 14.2, PL 226 10/24/17: 10:15 a.m.- WBC 4.6, H/H 8.6/25.8, PLT 228 (*post 1u PRBC on 10/24/17) , BUN/Cr 50/0.9, GFR > 60, Na 146, K 3.8, HCO3 22, AG 10, troponin 0.02 *As of 10/24/17, the patient remained with low normal BP. He was no longer tachycardic. He was afebrile (Tm 99.3), with O2 sat RA 100%. *He had received 1u PRBC earlier on 10/24/17 at 5:06 a.m.. for H/H 7.1/20.9. He had a dark bowel movement without any red blood. He denied any hematemesis, abdominal pain, nausea, vomiting, chest pain, palpitations, or shortness of breath. He was NPO for EGD. He tolerated clears po on 10/23/17. We are still awaiting the old cardiology records. 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 ASA & Plavix remained on hold , per discussion with Dr. Gloria. His BUN was trending down. He remained on IV Protonix 40 mg BID. He was on telemetry. Review of Systems: Full 14 point ROS otherwise noncontributory & as above. Review of Systems Constitutional: Reports: weakness (post flu). Denies: chills, diaphoresis, fever, malaise, unexplained weight loss. EENTM: Denies: blurred vision, double vision, visual changes, eye pain, eye drainage, eye tearing, icterus, ear discharge, ear pain, ear redness, hearing changes, nasal congestion, epistaxis, nasal pain, throat pain, throat swelling, mouth pain, tooth pain. Cardiovascular: Reports: syncope (unwitnessed ELECTRO MECHANICAL TECHNOLOGIST). Denies: chest pain, edema, orthopena, palpitations, peripheral edema. Respiratory: Reports: cough (dry). Denies: no symptoms, see HPI, hemoptysis, orthopnea, short of breath, sputum production, stridor, wheezing. GI: Reports: melena. Denies: abdominal pain, bloating, constipation, diarrhea, distention, bowel incontinence, nausea, bloody stool, changes in stool, vomiting, steatorrhea. Genitourinary: Denies: discharge, dysuria, frequency, hematuria, hesitation, nocturia, pain, urgency. Musculoskeletal: Denies: back pain, gout, joint pain, joint swelling, muscle pain, muscle stiffness, neck pain. Skin: Denies: cysts, change in skin color, change in hair/nails, dryness, erythema, jaundice, lesions, lymphangitis, lumps, moles, rash. Neurological/Psychological: Denies: anxiety, ataxia, cognitive dysfunction, confusion, depressed, dementia, emotional problems, headache, numbness, paresthesia, pre-existing deficit, petit mal seizures, tingling, tremors, tonic-clonic seizures, unable to move lower ext , unable to move upper ext, weakness. Hematologic/Endocrine: Denies: bruising, bleeding, polyuria, polydipsia. Immunologic/Allergic: Denies: splenectomy, HIV/AIDS, lymphadenopathy. All Other Systems: Reviewed and Negative Objective Vital Signs and I&Os Vital Signs Date Time Temp Pulse Resp B/P B/P Pulse O2 O2 Flow FiO2 Mean Ox Delivery Rate 10/24 0634 98.6 86 18 102/54 100 Room Air 10/23 2152 Room Air 10/23 2130 98.3 87 18 98/58 99 Room Air 10/23 2057 77 16 103/59 100 Room Air 10/23 1817 98.0 88 18 98/83 100 Room Air 10/23 1722 99.3 63 16 103/59 95 14 1600 86 16 102/58 Room Air 10/23 1452 97.0 89 18 98/62 96 Room Air 10/23 1333 98.0 94 98/74 Intake & Output 10/24 1600 10/24 0400 10/23 1600 10/23 0400 10/22 1600 10/22 0400 Intake Total 099 607 7811 Output Total 325 Balance -797 474 5663 Intake, IV 100 1000 Intake, Oral 200 Output, Urine 325 Patient 160 lb 165 lb Weight Weight Reported by Patient Reported by Patient Measurement Method Physical Exam: Well-developed well-nourished, pleasant elderly male, in no apparent distress. Sclera anicteric. Conjunctiva: less pale. Oropharynx clear. Poor dentition. No oral thrush. No aphthous ulcers. There is no adenopathy, thyromegaly, or JVD. No peripheral stigmata of inflammatory bowel disease or chronic liver disease on exam. No spiders on the anterior chest wall. No gynecomastia. No CVA tenderness. Lungs: clear to A&P. No wheezing, rales, or rhonchi. Heart exam: regular rate rhythm, S1 and S2, without any murmur. Abdominal exam: normal bowel sounds, soft belly, nontender, without guarding or rebound. No mass. No organomegaly. No fluid shift. No pulsatile mass. Digital rectal exam: per Dr. Rob in the ER 10/23/17: dark brown stool, OB-positive, no BRB. Extremities: without C, C, or E. No palpable cords. + DJD. Distal pulses 2+ bilaterally. DTRs 2+ bilaterally. Alert and oriented x 3. Right handed. Motor: 5/5 B/L. No focal deficitd. No tremor. No asterixis. Current Medications: Current Medications Sig/Adams Start time Last Medication Dose Route Stop Time Status Admin Acetaminophen 650 MG Q6P PRN 10/23 0845 AC PO Acetaminophen 1,000 MG Q6P PRN 10/23 0945 AC IV Atorvastatin Calcium 10 MG 1700 10/23 1700 AC 10/23 PO 1855 Oxycodone/ 1 TAB Q6P PRN 10/23 944 AC Acetaminophen PO Pantoprazole Sodium 40 MG BID 10/23 2200 AC 10/24 IV 0840 Pantoprazole Sodium 40 MG DAILY 10/23 1000 DC IV Sodium Chloride 1,000 ML ONCE ONE 10/23 0945 DC 10/23 IV 10/23 2304 1405 Sodium Chloride 1,000 ML ONCE ONE 10/23 0815 DC 10/23 IV 10/23 3012 4982 Results Pertinent Lab Results: Laboratory Tests 10/24 10/24 1015 0240 Chemistry Sodium (137 - 145 mmol/L) 146 H Potassium (3.5 - 5.1 mmol/L) 3.8 Chloride (98 - 107 mmol/L) 115 H Carbon Dioxide (22 - 30 mmol/L) 22 Anion Gap (5 - 16) 10 BUN (9 - 20 mg/dL) 50 H Creatinine (0.7 - 1.2 mg/dL) 0.9 Estimated GFR (>60 ml/min) > 60 BUN/Creatinine Ratio (7 - 25 %) 55.6 H Troponin I (<0.11 ng/ml) 0.02 Hematology CBC w Diff NO MAN DIFF REQ WBC (4.8 - 10.8 /CUMM) 4.6 L 6.3 RBC (4.70 - 6.10 /CUMM) 2.68 L 2.16 L Hgb (14.0 - 18.0 G/DL) 8.6 L 7.1 *L Hct (42 - 52 %) 25.8 L 20.9 L MCV (80.0 - 94.0 FL) 96.4 H 96.6 H MCH (27.0 - 31.0 PG) 32.1 H 32.7 H MCHC (33.0 - 37.0 G/DL) 33.3 33.9 RDW (11.5 - 14.5 %) 13.8 14.2 Plt Count (130 - 400 /CUMM) 228 226 MPV (7.4 - 10.4 FL) 7.9 8.1 Gran % (42.2 - 75.2 %) 63.5 71.0 Lymphocytes % (20.5 - 51.1 %) 29.3 21.9 Monocytes % (1.7 - 9.3 %) 6.1 6.4 Eosinophils % (0 - 5 %) 0.6 0.4 Basophils % (0.0 - 2.0 %) 0.5 0.3 Absolute Granulocytes (1.4 - 6.5 /CUMM) 2.9 4.4 Absolute Lymphocytes (1.2 - 3.4 /CUMM) 1.3 1.4 Absolute Monocytes (0.10 - 0.60 /CUMM) 0.3 0.4 Absolute Eosinophils (0.0 - 0.7 /CUMM) 0 0 Absolute Basophils (0.0 - 0.2 /CUMM) 0 0 10/23 10/23 10/23 1600 1448 1103 Chemistry Hemoglobin A1c (4.2 - 5.8 %) 6.1 H Lactic Acid (0.7 - 2.1 mmol/L) 1.2 Magnesium (1.6 - 2.3 mg/dL) 1.8 Troponin I (<0.11 ng/ml) < 0.01 TSH (0.270 - 4.200 uIU/mL) 0.508 Coagulation PT (9.4 - 12.5 SEC) 14.4 H INR (0.90 - 1.17) 1.38 H APTT (25 - 37 SEC) 27 Hematology CBC w Diff NO MAN DIFF REQ WBC (4.8 - 10.8 /CUMM) 4.7 L RBC (4.70 - 6.10 /CUMM) 2.72 L Hgb (14.0 - 18.0 G/DL) 8.9 L Hct (42 - 52 %) 26.1 L MCV (80.0 - 94.0 FL) 95.9 H MCH (27.0 - 31.0 PG) 32.8 H MCHC (33.0 - 37.0 G/DL) 34.2 RDW (11.5 - 14.5 %) 13.8 Plt Count (130 - 400 /CUMM) 229 MPV (7.4 - 10.4 FL) 7.9 Gran % (42.2 - 75.2 %) 62.4 Lymphocytes % (20.5 - 51.1 %) 28.5 Monocytes % (1.7 - 9.3 %) 8.1 Eosinophils % (0 - 5 %) 0.2 Basophils % (0.0 - 2.0 %) 0.8 Absolute Granulocytes (1.4 - 6.5 /CUMM) 2.9 Absolute Lymphocytes (1.2 - 3.4 /CUMM) 1.3 Absolute Monocytes (0.10 - 0.60 /CUMM) 0.4 Absolute Eosinophils (0.0 - 0.7 /CUMM) 0 Absolute Basophils (0.0 - 0.2 /CUMM) 0 10/23 0721 Chemistry Sodium (137 - 145 mmol/L) 144 Potassium (3.5 - 5.1 mmol/L) 4.3 Chloride (98 - 107 mmol/L) 112 H Carbon Dioxide (22 - 30 mmol/L) 21 L Anion Gap (5 - 16) 11 BUN (9 - 20 mg/dL) 69 H Creatinine (0.7 - 1.2 mg/dL) 0.9 Estimated GFR (>60 ml/min) > 60 BUN/Creatinine Ratio (7 - 25 %) 76.7 H Glucose (65 - 99 mg/dL) 156 H Lactic Acid (0.7 - 2.1 mmol/L) 3.0 H Calcium (8.4 - 10.2 mg/dL) 8.8 Total Bilirubin (0.2 - 1.3 mg/dL) 0.5 Direct Bilirubin (< 0.4 mg/dL) 0.2 AST (17 - 59 U/L) 18 ALT (21 - 72 U/L) 22 Alkaline Phosphatase (< 127 U/L) 54 Troponin I (<0.11 ng/ml) 0.01 Total Protein (6.3 - 8.2 g/dL) 4.9 L Albumin (3.5 - 5.0 g/dL) 2.8 L Amylase (30 - 110 U/L) 70 Lipase (23 - 300 U/L) 249 Hematology CBC w Diff NO MAN DIFF REQ WBC (4.8 - 10.8 /CUMM) 10.7 RBC (4.70 - 6.10 /CUMM) 3.13 L Hgb (14.0 - 18.0 G/DL) 10.2 L Hct (42 - 52 %) 30.1 L MCV (80.0 - 94.0 FL) 96.2 H MCH (27.0 - 31.0 PG) 32.5 H MCHC (33.0 - 37.0 G/DL) 33.8 RDW (11.5 - 14.5 %) 14.0 Plt Count (130 - 400 /CUMM) 320 MPV (7.4 - 10.4 FL) 8.0 Gran % (42.2 - 75.2 %) 90.7 H Lymphocytes % (20.5 - 51.1 %) 6.3 L Monocytes % (1.7 - 9.3 %) 2.8 Eosinophils % (0 - 5 %) 0.1 Basophils % (0.0 - 2.0 %) 0.1 Absolute Granulocytes (1.4 - 6.5 /CUMM) 9.7 H Absolute Lymphocytes (1.2 - 3.4 /CUMM) 0.7 L Absolute Monocytes (0.10 - 0.60 /CUMM) 0.3 Absolute Eosinophils (0.0 - 0.7 /CUMM) 0 Absolute Basophils (0.0 - 0.2 /CUMM) 0 Imaging/Other Studies: 10/23/17: EKG at 7:21 a.m.- NSR @ 87, LAD, borderline prolonged QT interval, NSST inflat. 10/23/17: EKG at 2:35 p.m.- NSR @ 89, otherwise similar to above. 10/23/17: XRY-PORTABLE CHEST XRAY- No acute pulmonary disease.
[2017-10-24 14:40] VITALS: BP 92/50
--- NOTE | 2017-10-24 14:50 | Proc Note Endoscopy ---
Endoscopy Procedure Medical History: unchanged Mental Status: alert/oriented Heart/Lung Eval Prior to Sedation: within normal limits Candidate for Sedation? Yes Procedure Date: 10/24/17 Procedure Type: EGD with clipping of oozing artery in DU at floor of duodenal bulb Gut Dropper: BOOKER CORRALES MD ASA Classification: III Indications: INDX: (*Please refer to extensive GI consult of 10/23/17). 72 y/o male, poor historian, ASHD, post apparent SC x 3 (1994, 2000, & 2006), with hx at least 3 bare metal coronary stents, one in [facility] in 2000- on full strength ASA/Plavix since. ? if last cardiac stent was at [facility] in 2010, or if he had additional stents placed at [facility] in 10/2013 (*await records from patient's c web developer, Dr. Mahesh Morales). The patient was last admitted to [facility] 10/14/13 to 10/15/13, with syncope & melena, requiring transfusion 1u PRBC on 10/14/13. I initially saw him in GI consultation at [place] 10/14/13 for melena. 10/14/13: *Upper endoscopy to the second portion of the duodenum with Epinephrine injection, BICAP cautery and clipping x1- ASSESSMENT: 1. Large red clot at the base of the duodenal bulb with normal duodenal sweep. Ampulla not seen. 2. Clot suctioned off base of duodenal bulb with underlying bleeding red spot as the obvious source (i.e.- *Dieulafoy lesion), treated with Epinephrine, BICAP cautery and clipping x1, with cessation of bleed. 3. Incidental patent lower esophageal ring at the Z line at 39 cm, left intact. 4. 2 cm hiatal hernia pouch from 39 to 41 cm, without any Rodriguez erosions. 5. Old blood and food coating a portion of the proximal stomach in the gastric cardia and fundus, 90% of which was cleared, representing possible underlying gastroparesis. 6. 6 mm probable inflammatory gastric polyp in the fundus, left intact, due to active bleeding from the duodenal bulb. *The patient was subsequently transferred to [facility] on 10/15/13 for a troponin elevation. *I do not have any details of that hospitalization & do not know if he had any interventional cardiac procedures then. I had previously advised a stool Ag H. pylori during the 10/2013 [place] admission, which was never sent. Regarding the questionable gastroparesis, 10/14: nl TSH 0.789, borderline HgbA1C 6.0. The patient was noncompliant then with a suggested follow-up outpatient EGD in 2 months to recheck the proximal stomach, nor with an outpatient baseline colonoscopy, nor an outpatient gastric scintiscan. The above had been discussed with the patient's ex-, Lani, the patient's daughter, February, & the patient's sister, Xenia Shaw, postoperatively in great detail, on 10/14/13, as per patient request. The patient was recently treated with outpt Tamiflu for positive Influenza type B [place] line, diagnosed when he presented to the [place] ER 10/06/17 with flu -like symptoms. Please note, although previously being told never to do so, he took Ibuprofen 800 mg po BID x > 1 week then for the flu, as he "saw a commercial for this". *This was done in conjunction with his ASA & Plavix. He apparently had stopped his PPI sometime in 2013! There was no FHx of any GI Ca, PUD, additional GI disease, or inherited liver disease. He was not compliant with a baseline screening colonoscopy. The patient was admitted to [facility] 10/23/17 for recurrent melena & elevated BUN/Cr ratio, but no active hematemesis. He required an additional 1u PRBC on 10/24/17. 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 His ASA & Plavix were held 10/23/17, & Dr. Gloria is awaiting clarification from Dr. Mahesh Morales about the patient's most recent cardiac history, regarding eventual resumption of anti-platelet agents. *The patient is currently on IV Protonix 40 mg BID. Instrument: diagnostic gastroscope Meds Received: MAC Patient's Tolerance: good Complications: none Extent Reached: second part of duodenum Procedure: Upper endoscopy to the second portion of the duodenum with clipping x 1, was performed with the Olympus high definition videoendoscope, after obtaining informed consent from the patient, with the rn cardiac rehab and pulse oximeter, with the assistance of Dr. Cardenas, of [facility]. A mouthpiece was placed in the usual fashion to protect the patient's teeth. The patient was placed in the left lateral decubitus position and sedated by [facility]. At this point, the endoscope was advanced from the mouth into the esophagus, using direct visualization technique. I did not get a good look at the vocal cords, so as not to induce laryngospasm, as the patient had some reactive airway disease. The proximal esophageal mucosa appeared normal. There were no esophageal webs, lesions, strictures, or ulcers. There was no monilia or vesicles. There was no esophageal ribbing. The Z line was well demarcated at 35 cm, at which point, there was a widely patent, incidental lower esophageal ring, which was left intact. There was a 4 cm sliding hiatal hernia pouch, from 35-39 cm. There were no Rodriguez erosions. No significant esophageal inflammation was seen. There were no ectopic islands, nor gross Milelr's esophagus. There were no esophageal or gastric varices, nor any Jailyn Mars tear. The barrera of the stomach distended normally with air insufflation. Direct and retroflexed views of the stomach were performed. There was nothing endoscopically to suggest gastroparesis or portal gastropathy. The mucosa of the gastric cardia, fundus, lesser curvature, incisura, & body appeared normal, without any gastric ulcers or gastric lesions. The gastric antrum showed some linear erythema, consistent with antral gastritis. Biopsies were deferred, in view of upper GI bleed. The pylorus was patent, without any gastric outlet obstruction or channel ulcer. The duodenal bulb revealed a 1 cm duodenal ulcer at the floor of the bulb, with an oozing artery. There was also an adjacent contralateral clean-based 1 cm superficial duodenal ulcer, which was left intact. The duodenal sweep appeared normal, without any distal ulcerations or angiodysplasias. Bile was seen in the duodenal sweep. I was not able to see the ampulla with the direct-viewing scope. The folds of the second portion of the duodenum were normal in caliber, without any flattening, nodularity, scalloping, or mosaic pattern. After completing the preliminary endoscopic portion of the exam, all attention was focused on the 1 cm duodenal ulcer at the floor of the bulb, with an oozing artery. I was contemplating cauterizing this, to be followed by clipping. At this point, as the patient had reactive airway disease from his recent influenza, he started to cough and transiently desaturate. Based on this, I felt that the most expeditious thing to do was to clip the oozing artery and forego the cautery. A [employer] Resolution 360 Clip was placed over the oozing artery in the 1 cm duodenal ulcer at the floor of the bulb, and deployed in excellent location. The bleeding site was then irrigated with the Yiopsy water jet, observed for several minutes postoperatively, and was stable, with minimal heme. No active bleeding was seen at this point. The patient tolerated the procedure well. Documenting photographs were obtained and placed inside the front cover of the patient's chart. Impression: 1. 1 cm duodenal ulcer at the floor of the duodenal bulb, with oozing artery, successfully treated with [employer] Resolution Clip 1, which deployed in excellent location. Adjacent contralateral clean-based superficial 1 cm duodenal ulcer, left intact. 2. Antral gastritis, biopsies deferred. 3. Patent, incidental lower esophageal ring at the Z line at 35 cm, left intact. 4. 4 cm sliding hiatal hernia pouch, from 35-39 cm. Recommendations: *NPO, except ice chips for now. *Change IV Protonix 40 mg BID to IV Protonix continuous drip @ 8 mg/hr. *No NSAIDS ever! Maintain on telemetry for now, but if patient becomes hemodynamically unstable or actively rebleeds, call GI [facility] & move patient to the ICU. *Check stool Ag H. pylori. *T&C 2u PRBC. *Check CBC Q8-12h for now. *Keep Hgb > 8 (hx ASHD). Strict I/O's. Gentle IV NS. Supplemental O2 as needed. ASA & Plavix on hold for now, per Dr. Gloria, who got further information from the patient's usual c web developer, Dr. Mahesh Morales. Dr. Gloria found out that the patient's last cardiac stent was in 2010. *Therefore, we decided to hold the patient's dual ant-platelet agents x 1 week. The patient has persistently refused baseline colonoscopy. As there is an active UGI source, it will be up to him to schedule an outpatient screening colonoscopy. DVT prophylaxis with mechanical ALPS. The above was previously discussed with the medical house staff, & again with Dr. Simon & Dr. Gloria postop. The above was also discussed with the patient postop. Further GI recommendations to follow, depending on clinical course. CC: Faizan FRY,Alfonzo Marcos; Michael Simon MD; Andrew FRY,Mahesh [place]; Otilio FRY,Shayne Thomas
--- NOTE | 2017-10-24 17:49 | PN- Cardiology ---
Subjective Subjective: Patient earlier underwent upper endoscopy to the second portion of the duodenum with Epinephrine injection, BICAP cautery and clipping x1 by gastroenterology ( Howie Bennett M.D.). Objective Vital Signs and I&Os Vital Signs Date Time Temp Pulse Resp B/P B/P Pulse O2 O2 Flow FiO2 Mean Ox Delivery Rate 10/24 1440 99.0 97 16 92/50 96 Room Air 10/24 0634 98.6 86 18 102/54 100 Room Air 10/23 2152 Room Air 10/23 2130 98.3 87 18 98/58 99 Room Air 10/23 2057 77 16 103/59 100 Room Air 10/23 1817 98.0 88 18 98/83 100 Room Air Intake & Output 10/24 1600 10/24 0800 10/24 0000 10/23 1600 10/23 0800 10/23 0000 Intake Total 20 187 395 2476 Output Total 550 325 Balance -530 -067 966 0041 Intake, IV 20 100 1000 Intake, Oral 200 Output, Urine 550 325 Patient 160 lb 165 lb Weight Weight Reported by Patient Reported by Patient Measurement Method Physical Exam: Well-developed, well-nourished elderly male in no acute distress. Vital signs: See above. Neck: No JVD, no bruits. Lungs: Clear to auscultation. Heart: S1, S2 no murmur, gallop, rub appreciated. Abdomen: Soft, nontender, positive bowel sounds. Extremities: No edema. Current Medications: Current Medications Sig/Adams Start time Last Medication Dose Route Stop Time Status Admin Acetaminophen 650 MG Q6P PRN 10/23 0945 AC PO Acetaminophen 1,000 MG Q6P PRN 10/23 0945 AC IV Atorvastatin Calcium 10 MG 1700 10/23 1700 AC 10/24 PO 1704 Chlorhexidine 1 GM .STK-MED ONE 10/24 1329 DC Gluconate TOP 10/24 1330 Dextrose/Sodium 1,000 ML Q13H 10/24 1715 AC Chloride IV Oxycodone/ 1 TAB Q6P PRN 10/23 0945 AC Acetaminophen PO Pantoprazole Sodium 80 MG Q10H 10/24 1430 AC 10/24 Dextrose/Water 100 ML IV 1704 Pantoprazole Sodium 40 MG BID 10/23 2200 AC 10/24 IV 0840 Patient Medication 1 ED ONE ONE 10/24 1415 DC Teaching ED 10/24 1416 Phenol 2 SPRAY Q2P PRN 10/24 1645 AC EXT Sodium Chloride 1,000 ML ONCE ONE 10/23 0945 DC 10/23 IV 10/23 2304 1405 Results Last 48 Hrs of Labs/Mics: Laboratory Tests 10/24/17 1015: Anion Gap 10, Estimated GFR > 60, BUN/Creatinine Ratio 55.6 H, CBC w Diff NO MAN DIFF REQ, RBC 2.68 L, MCV 96.4 H, MCH 32.1 H, MCHC 33.3, RDW 13.8, MPV 7.9, Gran % 63.5, Lymphocytes % 29.3, Monocytes % 6.1, Eosinophils % 0.6, Basophils % 0.5, Absolute Granulocytes 2.9, Absolute Lymphocytes 1.3, Absolute Monocytes 0.3, Absolute Eosinophils 0, Absolute Basophils 0 10/24/17 0240: Troponin I 0.02, RBC 2.16 L, MCV 96.6 H, MCH 32.7 H, MCHC 33.9, RDW 14.2, MPV 8.1, Gran % 71.0, Lymphocytes % 21.9, Monocytes % 6.4, Eosinophils % 0.4, Basophils % 0.3, Absolute Granulocytes 4.4, Absolute Lymphocytes 1.4, Absolute Monocytes 0.4, Absolute Eosinophils 0, Absolute Basophils 0 10/23/17 1600: CBC w Diff NO MAN DIFF REQ, RBC 2.72 L, MCV 95.9 H, MCH 32.8 H, MCHC 34.2, RDW 13.8, MPV 7.9, Gran % 62.4, Lymphocytes % 28.5, Monocytes % 8.1, Eosinophils % 0.2, Basophils % 0.8, Absolute Granulocytes 2.9, Absolute Lymphocytes 1.3, Absolute Monocytes 0.4, Absolute Eosinophils 0, Absolute Basophils 0 10/23/17 1448: Hemoglobin A1c 6.1 H, Magnesium 1.8, Troponin I < 0.01, TSH 0.508 10/23/17 1103: Lactic Acid 1.2, PT 14.4 H, INR 1.38 H, APTT 27 10/23/17 0721: Anion Gap 11, Estimated GFR > 60, BUN/Creatinine Ratio 76.7 H, Glucose 156 H, Lactic Acid 3.0 H, Calcium 8.8, Total Bilirubin 0.5, Direct Bilirubin 0.2, AST 18, ALT 22, Alkaline Phosphatase 54, Troponin I 0.01, Total Protein 4.9 L, Albumin 2.8 L, Amylase 70, Lipase 249, CBC w Diff NO MAN DIFF REQ, RBC 3.13 L, MCV 96.2 H, MCH 32.5 H, MCHC 33.8, RDW 14.0, MPV 8.0, Gran % 90.7 H, Lymphocytes % 6.3 L, Monocytes % 2.8, Eosinophils % 0.1, Basophils % 0.1, Absolute Granulocytes 9.7 H, Absolute Lymphocytes 0.7 L, Absolute Monocytes 0.3, Absolute Eosinophils 0, Absolute Basophils 0 Assessment/Plan Assessment/Plan [id number] w/ hx HLD & CAD s/p MT's x3 (1994, 2000, 2006) w/ multiple stents placed for which he has maintained on dual antiplatelet therapy (ASA, clopidogrel) and who presented to the ED with an upper GI bleed. Recommendations: * Continue on telemetry. * Hold antiplatelet therapy for the short-term. * Given extensive cardiac history, maintain hemoglobin at or above 8.0 g/dl. * Follow up on GI recommendations. * Continue on his other cardiac medications given his extensive history of CAD. * Obtain echocardiogram to reassess left ventricular function. Continue telemetry? Yes
[2017-10-24 19:25] LABS: ABSOLUTE BASOPHIL COUNT 0 /CUMM (0.0-0.2); ABSOLUTE EOSINOPHIL COUNT 0 /CUMM (0.0-0.7); ABSOLUTE GRANULOCYTE CT 5.9 /CUMM (1.4-6.5); ABSOLUTE LYMPH COUNT 1.2 /CUMM (1.2-3.4); ABSOLUTE MONOCYTE COUNT 0.4 /CUMM (0.10-0.60); BASOPHIL % 0.1 % (0.0-2.0); EOSINOPHIL % 0.1 % (0-5); GRANULOCYTE % 78.8 % (42.2-75.2); HEMATOCRIT 23.4 % (42-52); MEAN CORPUSCULAR HGB 33.1 PG (27.0-31.0); MEAN CORPUSCULAR HGB CONC 34.4 G/DL (33.0-37.0); MEAN CORPUSCULAR VOLUME 96.2 FL (80.0-94.0); MEAN PLATELET VOLUME 7.9 FL (7.4-10.4); PLATELET COUNT 230 /CUMM (130-400); RBC DISTRIBUTION WIDTH 14.2 % (11.5-14.5); RED BLOOD CELL CT 2.43 /CUMM (4.70-6.10)
[2017-10-24 19:36] LABS: WHITE BLOOD CELL COUNT 7.5 /CUMM (4.8-10.8)
[2017-10-24 22:46] VITALS: BP 100/60
[2017-10-25 06:57] VITALS: BP 100/60
--- NOTE | 2017-10-25 07:52 | PN- Housestaff ---
Angelica FRY,Arlen 10/25/17 0752: Subjective Follow-up For: Upper GI bleed s/p EGD and clipping Tele-Events Since Last Visit: Normal sinus rhythm 74-94 Subjective: Patient was seen and examined today. Patient notes some dizziness and lightheadedness. Patient denies any nausea/vomiting, hematemesis. Patient notes that he had 2 black tarry bowel movements. Patient denies any fever/ chills, dysuria/hematuria, chest pain, palpitations, shortness of breath. Patient notes a nonproductive cough and sore throat which has improved with the Chloraseptic [place]. Patient denies any hemoptysis. No acute events overnight. Review of Systems Constitutional: Reports: see HPI. Cardiovascular: Reports: no symptoms. Respiratory: Reports: cough. Gastrointestinal: Reports: see HPI. Genitourinary: Reports: no symptoms. Musculoskeletal: Reports: no symptoms. Skin: Reports: no symptoms. Neurological/Psychological: Reports: no symptoms. Objective Last 24 Hrs of Vital Signs/I&O Vital Signs Date Time Temp Pulse Resp B/P B/P Pulse O2 O2 Flow FiO2 Mean Ox Delivery Rate 10/25 1430 99.0 82 18 112/62 99 Room Air 10/25 0657 98.2 82 20 100/60 98 Room Air 10/24 2246 98.2 92 16 100/60 99 Room Air Intake & Output 10/25 1600 10/25 0800 10/25 0000 Intake Total 910 110 340 Output Total 350 175 600 Balance 560 -65 -260 Intake, Blood 350 Product Intake, IV 80 10 340 Intake, Oral 480 100 0 Number 1 1 Bowel Movements Output, Urine 350 175 600 Physical Exam General Appearance: Alert, Oriented X3, Cooperative Skin: No Rashes Skin Temp/Moisture Exam: Warm/Dry Sepsis Skin Exam (color): Normal for Ethnicity HEENT: Atraumatic, PERRLA, EOMI, Mucous Membr. moist/pink Cardiovascular: Regular Rate, Normal S1, Normal S2 Lungs: Clear to Auscultation, Normal Air Movement Abdomen: Normal Bowel Sounds, Soft, No Tenderness Extremities: No Clubbing, No Cyanosis, No Edema, Normal Pulses, No Tenderness/ Swelling Vascular: Normal Pulses, Pulses Symmetrical Current Medications: Current Medications Sig/Adams Start time Last Medication Dose Route Stop Time Status Admin Acetaminophen 650 MG .STK-MED ONE 02/16 0758 DC PO 10/25 0759 Acetaminophen 650 MG Q6P PRN 10/23 0945 AC 10/25 PO 0758 Acetaminophen 1,000 MG Q6P PRN 10/23 0945 AC IV Atorvastatin Calcium 10 MG 1700 10/23 1700 AC 10/25 PO 1617 Dextrose/Sodium 1,000 ML Q13H 10/24 1715 10/25 Chloride IV 1837 Oxycodone/ 1 TAB Q6P PRN 10/23 0945 AC Acetaminophen PO Pantoprazole Sodium 80 MG Q10H 10/24 1430 AC 10/25 Dextrose/Water 100 ML IV 1335 Pantoprazole Sodium 40 MG BID 10/23 2200 DC 10/24 IV 0840 Phenol 2 SPRAY Q2P PRN 10/24 1645 AC 10/24 EXT 2222 Last 24 Hrs of Lab/Uriel Results Last 24 Hrs of Labs/Mics: Laboratory Tests 10/25/17 1215: Stool H. pylori Ag Pending 10/25/17 0635: Anion Gap 7, Estimated GFR > 60, BUN/Creatinine Ratio 33.3 H, CBC w Diff NO MAN DIFF REQ, RBC 2.09 L, MCV 96.3 H, MCH 32.9 H, MCHC 34.1, RDW 14.9 H, MPV 7.9 , Gran % 67.9, Lymphocytes % 23.2, Monocytes % 7.6, Eosinophils % 1.2, Basophils % 0.1, Absolute Granulocytes 2.5, Absolute Lymphocytes 0.9 L, Absolute Monocytes 0.3, Absolute Eosinophils 0, Absolute Basophils 0 Assessment/Plan Assessment: This is a 72-year-old male with past medical history significant for coronary artery disease status post bare metal stents 4, on dual antiplatelet agents aspirin and Plavix since 1995, hypertension, hyperlipidemia presented to the [facility] emergency department for evaluation of black tarry stools since last evening. Vitals afebrile, heart rate 126, respiratory rate 16, blood pressure 90/60, saturating at 97 on ra. Pertinent labs WBC 10.7, hemoglobin 10.2 and hematocrit 30.1, platelets 320, BUN 16 and creatinine 0.9 XL lactic acid 3 LFTs normal except troponin normal Amylase and lipase normal Received 2 L of normal saline bolus in the emergency room, Protonix. Chest x-ray was normal EKG 87, left axis deviation, no ST-T wave changes. Problem list 1. Upper GI bleed 2. Syncope 3. Lactic acidosis 4. Stable CAD 5. Hypertension 6. Hyperlipidemia Upper GI bleed Patient presented with acute onset of 4-5 episodes of upper GI bleed with black colored tarry stools. Of note he is on dual antiplatelet agents aspirin and Plavix since 1995. Of note patient reports using ibuprofen for last 1 week for headaches. Upper GI bleed/melena most possibly from use of NSAIDS on the top of dual antiplatelet agents. Vitals were stable except for borderline blood pressure. He was found to have elevated BUN and lactic acid at the time of admission. Today patient's H/H dropped to 6.9/20.1. Patient was given 1 pRBC. Repeat H/H: 8.7/25.5. * EGD on 10/24 showed:duodenal ulcer at the floor of the duodenal bulb, with oozing artery and antral gastritis, hiatal hernia pouch * Admit to telemetry floor for continuous telemetry monitoring * vitals every shift * Type and screen was done * Serial monitoring of hemoglobin and hematocrit * 2 large IV bore lines * Protonix drip to continue today * IV fluids gentle hydration given his borderline blood pressure * Please hold aspirin and Plavix for now and follow up cardiology recommendations * Please hold using any NSAIDS. * Check orthostatic blood pressure * Maintain hemoglobin above 8 * Stool guaiac-positive in ER * Patient is to be on a clear liquid diet today per GI. Patient on D5W NS @ 75 cc/hr * Follow-up CBCs at 6AM tomorrow * Per cardiology and GI: restart antiplatelet therapy one week from the BICAP cautery and clipping. Syncope Patient reports generalized weakness and lightheadedness. According to him, had an episode of syncope last night. He was found on the floor after losing consciousness. This was unwitnessed syncope. According to him he felt dizzy and lightheaded prior to that event. He denied any seizures, tongue bite, stool or urinary incontinence. No post event confusion. He continues to report lightheadedness and dizziness in the emergency room. * Syncope most possibly from active GI bleed and dehydration given his elevated BUN * Telemetry monitoring * Troponin and EKG normal * Cardiology consulted with Dr. Gloria * Follow-up orthostatic vitals * ECHO showed LVEF of > 60% with impaired LV relaxation Lactic acidosis - resolved Lactic acid 3 at the time of admission. Mostly from dehydration and GI bleed. Provide gentle hydration and repeat lactic acid. * Continue IV fluids normal saline 75 mL per hour History of [place] hx of [place] 1995 s/p stents Cardiology consulted stable ACS, risk of ACS w/ GI bleed HOLD Plavix HOLD ASA c/w isosorbide and Metoprolol 25 mg po BID HLD c/w Atoruvastatin Hypertension Lisinopril 5 mg daily - held due to acute bleed DVT prophylaxis ALPs Full code status Clear liquid diet Problem List: 1. Anemia 2. GI bleed Pain Ratin Pain Location: n/a Pain Goal: Remain pain free Pain Plan: Tylenol PRN AVOID NSAIDS Tomorrow's Labs & Rationales: CBC BEP Michael Simon MD 10/25/172101: Attending MD Review Statement Attending Statement Attending MD Statement: examined this patient, discuss w/resident/PA/ACCREDITATION MANAGER, agreed w/resident/PA/ACCREDITATION MANAGER, reviewed EMR data (avail), discussed with nursing, discussed with case mgmt, amended to note Attending Assessment/Plan: The patient was seen and discussed with house staff. Appreciate GI follow-up. H/ H dropped further this morning and additional 1 unit PRBC transfused. Continue IV Protonix drip and only clear liquids per GI. Follow H/H. Cardiology & GI to determine restart of Plavix/ASA.
[2017-10-25 07:53] LABS: ABSOLUTE BASOPHIL COUNT 0 /CUMM (0.0-0.2); ABSOLUTE EOSINOPHIL COUNT 0 /CUMM (0.0-0.7); ABSOLUTE GRANULOCYTE CT 2.5 /CUMM (1.4-6.5); ABSOLUTE MONOCYTE COUNT 0.3 /CUMM (0.10-0.60); MEAN CORPUSCULAR HGB 32.9 PG (27.0-31.0); MEAN PLATELET VOLUME 7.9 FL (7.4-10.4)
[2017-10-25 08:14] LABS: ABSOLUTE LYMPH COUNT 0.9 /CUMM (1.2-3.4); BASOPHIL % 0.1 % (0.0-2.0); EOSINOPHIL % 1.2 % (0-5); GRANULOCYTE % 67.9 % (42.2-75.2); HEMATOCRIT 20.1 % (42-52); MEAN CORPUSCULAR HGB CONC 34.1 G/DL (33.0-37.0); MEAN CORPUSCULAR VOLUME 96.3 FL (80.0-94.0); PLATELET COUNT 174 /CUMM (130-400); RBC DISTRIBUTION WIDTH 14.9 % (11.5-14.5); RED BLOOD CELL CT 2.09 /CUMM (4.70-6.10)
[2017-10-25 08:18] LABS: WHITE BLOOD CELL COUNT 3.7 /CUMM (4.8-10.8)
--- NOTE | 2017-10-25 08:46 | PN- Gastroenterology ---
Assessment/Plan GI Assessment/Recommendations: 72 y/o male, poor historian & non-compliant with GI follow-up, remotely seen by myself in inpatient GI consultation for UGI bleed 10/14/13, while on ASA/Plavix. His cardiology records are in the [place] area, as he is followed there by Dr. Mahesh Morales. He sees Dr. Yañez for primary care. The patient is non-HTN, non-DM, HLD with ASHD, post RI x 3. He apparently had RI x 3 in 1994, 2000, & 2006. He had at least 3 bare metal stents placed, one in RCA in 2000, on full strength ASA & Plavix since. Apparently, his last cardiac stent was in 2010 at [facility]. We do not have copies of sandoval cardiac catheterization report. *The patient now stated that he "may have had another stent placed sometime after he was last here in 10/2013," but he was an extremely poor historian. *He may be correct, as apparently, he was transfered to [facility] from [place] 10/15/13, for a 10/15/13: troponin bump 0.41. The patient was last admitted to [facility] 10/14/13 to 10/15/13, with syncope & melena, requiring transfusion 1u PRBC on 10/14/13 (which the patient could not recall). He required suturing of an eyebrow laceration then. I saw the patient in GI consultation 10/14/13 for melena. 10/14/13: *Upper endoscopy to the second portion of the duodenum with Epinephrine injection, BICAP cautery and clipping x1- ASSESSMENT: 1. Large red clot at the base of the duodenal bulb with normal duodenal sweep. Ampulla not seen. 2. Clot suctioned off base of duodenal bulb with underlying bleeding red spot as the obvious source (i.e.- *Dieulafoy lesion), treated with Epinephrine, BICAP cautery and clipping x1, with cessation of bleed. 3. Incidental patent lower esophageal ring at the Z line at 39 cm, left intact. 4. 2 cm hiatal hernia pouch from 39 to 41 cm, without any Rodriguez erosions. 5. Old blood and food coating a portion of the proximal stomach in the gastric cardia and fundus, 90% of which was cleared, representing possible underlying gastroparesis. 6. 6 mm probable inflammatory gastric polyp in the fundus, left intact, due to active bleeding from the duodenal bulb. *The patient was subsequently transferred to [facility] on 10/15/13 for a troponin elevation. *I do not have any details of that hospitalization & do not know if he had any interventional cardiac procedures then. I had previously advised a stool Ag H. pylori during the 10/2013 [place] admission, which was never sent. Regarding the questrionable gastroparesis, 01/20: nl TSH 0.789, borderline HgbA1C 6.0. The patient was noncompliant then with a suggested follow-up outpatient EGD in 2 months to recheck the proximal stomach, nor with an outpatient baseline colonoscopy, nor an outpatient gastric scintiscan. The above had been discussed with the patient's ex-, Lani, the patient's daughter, Candy, & the patient's sister, Xenia Shaw, postoperatively in great detail, on 10/14/13, as per patient request. The patient came to the [place] ER 10/06/17 with flu-like symptoms, headache, low grade temp, and a dry cough alternating with yellow sputum. 10/06/17: CXR- negative, except DJD. He tested positive for Influenza Type B [place] andrew & was D/C to home on Tamiflu. Please note, although previously being told never to do so, he took Ibuprofen 800 mg po BID x > 1 week then for the flu, as he "saw a commercial for this". *This was done in conjunction with his ASA & Plavix. He apparently had stopped his PPI sometime in 2013! The patient presented to the [place] ER 10/23/17 at 6:54 AM, complaining of 4-5 episodes of black tarry stool overnight (he had dark brown, OB+ stool in the ER, per Dr. Rob). Upon arrival, BP 90/60, P 126, R 16, T 95.7 (Tm 99.3), O2 sat RA 97%. His hypotension & tachycardia improved after IVF. He was given IV Protonix (not continuous drip) & IV NS in the ER. His initial H/H (10.2/30.1), were realtively stable compared to his [place] labs from 4 years prior, but his BUN/Cr ratio was elevated 69/0.9 (* see labs). He denied using any Fe or Pepto Bismol to account for the dark stool. He had generalized weakness and lightheadedness. There may have been a repeat episode of syncope the night [employer], which was unwitnessed, with questionable LOC. He denied any seizures, tongue biting, fecal incontinence, urinary incontinence, post-ictal confusion, or recurrent head trauma. He denied any chest pain, shortness of breath, palpitations, fevers, chills, or jaundice. He denied any cigarettes (ex-5-pk yr cigarette smoker, D/C 1961), alcohol, or illicit drug use. He denied any GERD, odynophagia, dysphagia, early satiety, hematemesis, hemoptysis, gum bleeding, epistaxis, abdominal pain, diarrhea, constipation, obstipation, tenesmus, change in stool caliber, or rectal bleeding. He noted decreased appetite over the past couple of weeks, rigidity to the flu, including total was 10 pounds during that period. There was no FHx of any GI Ca, PUD, additional GI disease, or inherited liver disease. *The patient was seen in covering GI consultation by Dr. Gloria, who did not have the latest information from the patient's usual cancer genetic counselor, Dr. Mahesh Morales. I spoke to Dr. Gloria shortly after 5 p.m. on 10/23/17, who will try to obtain the latest cardiac history from Dr. Mahesh Morales. Dr. Gloria agreed with temporarily holding the aspirin and Plavix for now. The Ibuprofen reportedly had been stopped by the patient < 1 week [employer]. 10/23/17: Admission labs 7:21 a.m.- WBC 10.7 (91% gran, 10 gran Ab), H/H 10.2/ 30.1, MCV 96.2, RDW 14, PLT 320, glucose 156, BUN/Cr 69/0.9, GFR > 60, Na 144, K 4.3, HCO3 21, AG 11, + lactate 3.0-> 1.2, nl amylase 70, nl lipase 249, Ca 8.8, alb 2.8, glob 2.1, TBil 0.5, DBil 0.2, alk phos 54, AST 18, ALT 22, troponin 0.01 10/23/17: 11:03 a.m.- PT 14.4, INR 1.38 10/23/17: 2:28 p.m.- Mg 1.8, troponin < 0.01, TSH 0.508 10/23/17: 4:00 p.m.- WBC 4.7, H/H 8.9/26.1, MCV 95.9, RDW 13.8, PLT 229 10/23/17: EKG at 7:21 a.m.- NSR @ 87, LAD, borderline prolonged QT interval, NSST inflat. 10/23/17: EKG at 2:35 p.m.- NSR @ 89, otherwise similar to above. 10/23/17: XRY-PORTABLE CHEST XRAY- No acute pulmonary disease. *With elevated BUN/Cr ratio of > 70:1 (although there could be a component of dehydration, post flu), hx melena (currently dark brown stool, OB-positive), past hx Dieulafoy lesion in duodenal bulb -> Epi/BiCAP/clip via 10/14/13: EGD (patient not compliant with suggested follow-up EGD, gastric scintiscan, or baseline colonoscopy afterwards), & recent Ibuprofen (post flu), superimposed on ASA/Plavix, most likely, UGI bleed, although no hematemesis. The strong history of ASHD is noted, post multiple RI x 3 (1994, 2000, 2006), with at least 3 bare metal stents placed, 1 in RCA in 2000. I was under the impression that his last stent was placed in 2010. *Of note, the patient was transferred to [facility] from [place] 10/15/13, for possible repeat cardiac intervention, with troponin bump then. We do not have details of this. His cardiac records are with Dr. Mahesh Morales. The Ibuprofen was stopped [employer]. The patient was seen in covering cardiology consultation by Dr. Gloria on admission, who agreed with holding ASA & Plavix for now. He will try to get details of his most recent cardiac workup from Dr. Mahesh Morales. At the moment, the patient looked stable. He was tolerating clears. 10/24/17: 2:40 a.m.- WBC 6.3, H/H 7.1/20.9, MCV 96.6, RDW 14.2, PL 226 10/24/17: 10:15 a.m.- WBC 4.6, H/H 8.6/25.8, PLT 228 (*post 1u PRBC on 10/24/17) , BUN/Cr 50/0.9, GFR > 60, Na 146, K 3.8, HCO3 22, AG 10, troponin 0.02 *As of 10/24/17, the patient remained with low normal BP. He was no longer tachycardic. He was afebrile (Tm 99.3), with O2 sat RA 100%. *He had received 1u PRBC earlier on 10/24/17 at 5:06 a.m.. for H/H 7.1/20.9. He had a dark bowel movement without any red blood. He denied any hematemesis, abdominal pain, nausea, vomiting, chest pain, palpitations, or shortness of breath. He was NPO for EGD. He tolerated clears po on 10/23/17. We are still awaiting the old cardiology records. Ibuprofen was D/C 1 week [employer]. ASA & Plavix remained on hold , per discussion with Dr. Gloria. His BUN was trending down. He remained on IV Protonix 40 mg BID. He was on telemetry. 10/24/17: *EGD with clipping of oozing artery in DU at floor of duodenal bulb- Impression: 1. 1 cm duodenal ulcer at the floor of the duodenal bulb, with oozing artery, successfully treated with *[place] [employer] Resolution Clip 1, which deployed in excellent location. Adjacent contralateral clean-based superficial 1 cm duodenal ulcer, left intact. 2. Antral gastritis, biopsies deferred. 3. Patent, incidental lower esophageal ring at the Z line at 35 cm, left intact. 4. 4 cm sliding hiatal hernia pouch, from 35-39 cm. 10/24/17: 6:00 p.m.- WBC 7.5, H/H 8.1/23.4, PLT 230 10/25/17: WBC 3.7, *H/H 6.9/20.1, PLT 174, *BUN/Cr 30/0.9, GFR > 60, Na 144, *K 3.4, HCO3 21, AG 7. *As of 10/25/17, the patient remained with low normal BP, and was otherwise hemodynamically stable & afebrile (Tm 99), with O2 sat RA 98%. He had received a total of 2u PRBC this admission, last on 10/24/17 at 5:08 a.m. He was NPO except ice chips, on an IV Protonix drip, receiving IV: D5NS @ 75cc/hr. *His DAPT (ASA/Plavix) remained on hold, per discussion with cardiology. Dr. Gloria had spoken with Dr. Mahesh Morales on 10/24/17, & *the patient's last cardiac stent was placed in 2010 (which I believe was bare metal). Although his BUN was decreased, his Hgb had fallen to 6.9 today, with K 3.4(*see labs). He was stil awaiting an echocardiogram. He had a dark stool overnight. He denied any hematemesis, rectal bleeding, abdominal pain, nausea, vomiting, chest pain, or shortness of breath. He was hungry. He was ambulating in his room. SUGGEST: *Transfuse now please. *2 large bore IVs. *T&C 2u PRBC. *Check CBC Q8-12h for now. *Keep Hgb > 8 (hx ASHD). Strict I/O's. Gentle IV NS (avoid hemodilution). Supplemental O2 as needed.*Replete K+.*Clears po as tolerated. *Mobilize patient as tolerated. *Continue IV Protonix continuous drip @ 8 mg/hr for now & if stable, can siwtch to PPI BID tomorrow. The patient will probably have to be on lifelong Protonix.*No NSAIDS ever! Maintain on telemetry for now, but if patient becomes hemodynamically unstable or actively rebleeds, call [facility] & move patient to the ICU. *Check stool Ag H. pylori. *ASA & Plavix on hold for now, per Dr. Gloria, who got further information from the patient's usual cancer genetic counselor, Dr. Mahesh Morales, on 10/24/17. Dr. Gloria found out that the patient's last cardiac stent was in 2010. *Therefore, we decided to hold the patient's dual ant-platelet agents x 1 week post 10/24/17: EGD. *Await echocardiogram per cardiology. The patient has persistently refused baseline colonoscopy. As there is an active UGI source, it will be up to him to schedule an outpatient screening colonoscopy. DVT prophylaxis with mechanical ALPS. The above was again discussed with the patient's RN, the medical house staff & with Dr. Simon, & previously with Dr. Gloria. The above was also again discussed with the patient. Hopefully, the patient will stabilize without need for repeat EGD. Dr. Nix will see the patient for GI over the weekend. I will return on 10/28/17, but hopefully the patient will be D/ C to home by then. He should have a repeat CBC 1 week after D/C. Further GI recommendations to follow, depending on clinical course. Problem List: 1. GI bleed 2. Melena 3. Duodenal ulcer hemorrhage 4. NSAIDs adverse reaction 5. Anemia 6. Syncopal episodes 7. History of RI (myocardial infarction) 8. Influenza B Subjective Subjective: 10/24/17: *EGD with clipping of oozing artery in DU at floor of duodenal bulb- Impression: 1. 1 cm duodenal ulcer at the floor of the duodenal bulb, with oozing artery, successfully treated with *[place] Scientific Resolution Clip 1, which deployed in excellent location. Adjacent contralateral clean-based superficial 1 cm duodenal ulcer, left intact. 2. Antral gastritis, biopsies deferred. 3. Patent, incidental lower esophageal ring at the Z line at 35 cm, left intact. 4. 4 cm sliding hiatal hernia pouch, from 35-39 cm. 10/24/17: 6:00 p.m.- WBC 7.5, H/H 8.1/23.4, PLT 230 10/25/17: WBC 3.7, *H/H 6.9/20.1, PLT 174, *BUN/Cr 30/0.9, GFR > 60, Na 144, *K 3.4, HCO3 21, AG 7. *As of 10/25/17, the patient remained with low normal BP, and was otherwise hemodynamically stable & afebrile (Tm 99), with O2 sat RA 98%. He had received a total of 2u PRBC this admission, last on 10/24/17 at 5:08 a.m. He was NPO except ice chips, on an IV Protonix drip, receiving IV: D5NS @ 75cc/hr. *His DAPT (ASA/Plavix) remained on hold, per discussion with cardiology. Dr. Gloria had spoken with Dr. Mahesh Morales on 10/24/17, & *the patient's last cardiac stent was placed in 2010 (which I believe was bare metal). Although his BUN was decreased, his Hgb had fallen to 6.9 today, with K 3.4(*see labs). He was stil awaiting an echocardiogram. He had a dark stool overnight. He denied any hematemesis, rectal bleeding, abdominal pain, nausea, vomiting, chest pain, or shortness of breath. He was hungry. He was ambulating in his room. Review of Systems: Full 14 point ROS otherwise noncontributory & as above. Review of Systems Constitutional: Reports: weakness (post flu). Denies: chills, diaphoresis, fever, malaise, unexplained weight loss. EENTM: Denies: blurred vision, double vision, visual changes, eye pain, eye drainage, eye tearing, icterus, ear discharge, ear pain, ear redness, hearing changes, nasal congestion, epistaxis, nasal pain, throat pain, throat swelling, mouth pain, tooth pain. Cardiovascular: Reports: syncope (unwitnessed [employer]). Denies: chest pain, edema, orthopena, palpitations, peripheral edema. Respiratory: Reports: cough (dry). Denies: no symptoms, see HPI, hemoptysis, orthopnea, short of breath, sputum production, stridor, wheezing. GI: Reports: melena. Denies: abdominal pain, bloating, constipation, diarrhea, distention, bowel incontinence, nausea, bloody stool, changes in stool, vomiting, steatorrhea. Genitourinary: Denies: discharge, dysuria, frequency, hematuria, hesitation, nocturia, pain, urgency. Musculoskeletal: Denies: back pain, gout, joint pain, joint swelling, muscle pain, muscle stiffness, neck pain. Skin: Denies: cysts, change in skin color, change in hair/nails, dryness, erythema, jaundice, lesions, lymphangitis, lumps, moles, rash. Neurological/Psychological: Denies: anxiety, ataxia, cognitive dysfunction, confusion, depressed, dementia, emotional problems, headache, numbness, paresthesia, pre-existing deficit, petit mal seizures, tingling, tremors, tonic-clonic seizures, unable to move lower ext , unable to move upper ext, weakness. Hematologic/Endocrine: Denies: bruising, bleeding, polyuria, polydipsia. Immunologic/Allergic: Denies: splenectomy, HIV/AIDS, lymphadenopathy. All Other Systems: Reviewed and Negative Objective Vital Signs and I&Os Vital Signs Date Time Temp Pulse Resp B/P B/P Pulse O2 O2 Flow FiO2 Mean Ox Delivery Rate 10/25 0657 98.2 82 20 100/60 98 Room Air 10/24 2246 98.2 92 16 100/60 99 Room Air 10/24 1440 99.0 97 16 92/50 96 Room Air Intake & Output 10/25 1600 10/25 0400 10/24 1600 10/24 0400 10/23 1600 10/23 0400 Intake Total 110 340 504 782 9276 Output Total 175 600 875 Balance -65 -260 -423 770 3900 Intake, IV 10 239 210 0750 Intake, Oral 100 0 200 Number 1 Bowel Movements Output, Urine 175 600 875 Patient 160 lb 165 lb Weight Weight Reported by Patient Reported by Patient Measurement Method Physical Exam: Well-developed well-nourished, pleasant elderly male, in no apparent distress. Sclera anicteric. Conjunctiva: slightly pale. Oropharynx clear. Poor dentition. No oral thrush. No aphthous ulcers. There is no adenopathy, thyromegaly, or JVD. No peripheral stigmata of inflammatory bowel disease or chronic liver disease on exam. No spiders on the anterior chest wall. No gynecomastia. No CVA tenderness. Lungs: clear to A&P. No wheezing, rales, or rhonchi. Heart exam: regular rate rhythm, S1 and S2, without any murmur. Abdominal exam: normal bowel sounds, soft belly, nontender, without guarding or rebound. No mass. No organomegaly. No fluid shift. No pulsatile mass. Digital rectal exam: per Dr. Rob in the ER 10/23/17: dark brown stool, OB-positive, no BRB. Extremities: without C, C, or E. No palpable cords. + DJD. Distal pulses 2+ bilaterally. DTRs 2+ bilaterally. Alert and oriented x 3. Right handed. Motor: 5/5 B/L. No focal deficitd. No tremor. No asterixis. Current Medications: Current Medications Sig/Adams Start time Last Medication Dose Route Stop Time Status Admin Acetaminophen 650 MG Q6P PRN 10/23 0945 AC 10/25 PO 0758 Acetaminophen 1,000 MG Q6P PRN 10/23 0945 AC IV Atorvastatin Calcium 10 MG 1700 10/23 1700 AC 10/24 PO 1704 Chlorhexidine 1 GM .STK-MED ONE 10/24 1329 DC Gluconate TOP 10/24 1330 Dextrose/Sodium 1,000 ML Q13H 10/24 1715 10/25 Chloride IV 0546 Oxycodone/ 1 TAB Q6P PRN 10/23 0945 AC Acetaminophen PO Pantoprazole Sodium 80 MG Q10H 10/24 1430 AC 10/25 Dextrose/Water 100 ML IV 0231 Pantoprazole Sodium 40 MG BID 10/23 2200 DC 10/24 IV 0840 Patient Medication 1 ED ONE ONE 10/24 1415 DC Teaching ED 10/24 1416 Phenol 2 SPRAY Q2P PRN 10/24 1645 10/24 EXT 2222 Results Pertinent Lab Results: Laboratory Tests 10/25 10/24 0635 1800 Chemistry Sodium (137 - 145 mmol/L) 144 Potassium (3.5 - 5.1 mmol/L) 3.4 L Chloride (98 - 107 mmol/L) 116 H Carbon Dioxide (22 - 30 mmol/L) 21 L Anion Gap (5 - 16) 7 BUN (9 - 20 mg/dL) 30 H Creatinine (0.7 - 1.2 mg/dL) 0.9 Estimated GFR (>60 ml/min) > 60 BUN/Creatinine Ratio (7 - 25 %) 33.3 H Hematology CBC w Diff NO MAN DIFF REQ NO MAN DIFF REQ WBC (4.8 - 10.8 /CUMM) 3.7 L 7.5 RBC (4.70 - 6.10 /CUMM) 2.09 L 2.43 L Hgb (14.0 - 18.0 G/DL) 6.9 *L 8.1 L Hct (42 - 52 %) 20.1 L 23.4 L MCV (80.0 - 94.0 FL) 96.3 H 96.2 H MCH (27.0 - 31.0 PG) 32.9 H 33.1 H MCHC (33.0 - 37.0 G/DL) 34.1 34.4 RDW (11.5 - 14.5 %) 14.9 H 14.2 Plt Count (130 - 400 /CUMM) 174 230 MPV (7.4 - 10.4 FL) 7.9 7.9 Gran % (42.2 - 75.2 %) 67.9 78.8 H Lymphocytes % (20.5 - 51.1 %) 23.2 15.5 L Monocytes % (1.7 - 9.3 %) 7.6 5.5 Eosinophils % (0 - 5 %) 1.2 0.1 Basophils % (0.0 - 2.0 %) 0.1 0.1 Absolute Granulocytes (1.4 - 6.5 /CUMM) 2.5 5.9 Absolute Lymphocytes (1.2 - 3.4 /CUMM) 0.9 L 1.2 Absolute Monocytes (0.10 - 0.60 /CUMM) 0.3 0.4 Absolute Eosinophils (0.0 - 0.7 /CUMM) 0 0 Absolute Basophils (0.0 - 0.2 /CUMM) 0 0 10/24 10/24 1015 0240 Chemistry Sodium (137 - 145 mmol/L) 146 H Potassium (3.5 - 5.1 mmol/L) 3.8 Chloride (98 - 107 mmol/L) 115 H Carbon Dioxide (22 - 30 mmol/L) 22 Anion Gap (5 - 16) 10 BUN (9 - 20 mg/dL) 50 H Creatinine (0.7 - 1.2 mg/dL) 0.9 Estimated GFR (>60 ml/min) > 60 BUN/Creatinine Ratio (7 - 25 %) 55.6 H Troponin I (<0.11 ng/ml) 0.02 Hematology CBC w Diff NO MAN DIFF REQ WBC (4.8 - 10.8 /CUMM) 4.6 L 6.3 RBC (4.70 - 6.10 /CUMM) 2.68 L 2.16 L Hgb (14.0 - 18.0 G/DL) 8.6 L 7.1 *L Hct (42 - 52 %) 25.8 L 20.9 L MCV (80.0 - 94.0 FL) 96.4 H 96.6 H MCH (27.0 - 31.0 PG) 32.1 H 32.7 H MCHC (33.0 - 37.0 G/DL) 33.3 33.9 RDW (11.5 - 14.5 %) 13.8 14.2 Plt Count (130 - 400 /CUMM) 228 226 MPV (7.4 - 10.4 FL) 7.9 8.1 Gran % (42.2 - 75.2 %) 63.5 71.0 Lymphocytes % (20.5 - 51.1 %) 29.3 21.9 Monocytes % (1.7 - 9.3 %) 6.1 6.4 Eosinophils % (0 - 5 %) 0.6 0.4 Basophils % (0.0 - 2.0 %) 0.5 0.3 Absolute Granulocytes (1.4 - 6.5 /CUMM) 2.9 4.4 Absolute Lymphocytes (1.2 - 3.4 /CUMM) 1.3 1.4 Absolute Monocytes (0.10 - 0.60 /CUMM) 0.3 0.4 Absolute Eosinophils (0.0 - 0.7 /CUMM) 0 0 Absolute Basophils (0.0 - 0.2 /CUMM) 0 0 /14 0214 02/14 1600 1448 1103 Chemistry Hemoglobin A1c (4.2 - 5.8 %) 6.1 H Lactic Acid (0.7 - 2.1 mmol/L) 1.2 Magnesium (1.6 - 2.3 mg/dL) 1.8 Troponin I (<0.11 ng/ml) < 0.01 TSH (0.270 - 4.200 uIU/mL) 0.508 Coagulation PT (9.4 - 12.5 SEC) 14.4 H INR (0.90 - 1.17) 1.38 H APTT (25 - 37 SEC) 27 Hematology CBC w Diff NO MAN DIFF REQ WBC (4.8 - 10.8 /CUMM) 4.7 L RBC (4.70 - 6.10 /CUMM) 2.72 L Hgb (14.0 - 18.0 G/DL) 8.9 L Hct (42 - 52 %) 26.1 L MCV (80.0 - 94.0 FL) 95.9 H MCH (27.0 - 31.0 PG) 32.8 H MCHC (33.0 - 37.0 G/DL) 34.2 RDW (11.5 - 14.5 %) 13.8 Plt Count (130 - 400 /CUMM) 229 MPV (7.4 - 10.4 FL) 7.9 Gran % (42.2 - 75.2 %) 62.4 Lymphocytes % (20.5 - 51.1 %) 28.5 Monocytes % (1.7 - 9.3 %) 8.1 Eosinophils % (0 - 5 %) 0.2 Basophils % (0.0 - 2.0 %) 0.8 Absolute Granulocytes (1.4 - 6.5 /CUMM) 2.9 Absolute Lymphocytes (1.2 - 3.4 /CUMM) 1.3 Absolute Monocytes (0.10 - 0.60 /CUMM) 0.4 Absolute Eosinophils (0.0 - 0.7 /CUMM) 0 Absolute Basophils (0.0 - 0.2 /CUMM) 0 10/23 0721 Chemistry Sodium (137 - 145 mmol/L) 144 Potassium (3.5 - 5.1 mmol/L) 4.3 Chloride (98 - 107 mmol/L) 112 H Carbon Dioxide (22 - 30 mmol/L) 21 L Anion Gap (5 - 16) 11 BUN (9 - 20 mg/dL) 69 H Creatinine (0.7 - 1.2 mg/dL) 0.9 Estimated GFR (>60 ml/min) > 60 BUN/Creatinine Ratio (7 - 25 %) 76.7 H Glucose (65 - 99 mg/dL) 156 H Lactic Acid (0.7 - 2.1 mmol/L) 3.0 H Calcium (8.4 - 10.2 mg/dL) 8.8 Total Bilirubin (0.2 - 1.3 mg/dL) 0.5 Direct Bilirubin (< 0.4 mg/dL) 0.2 AST (17 - 59 U/L) 18 ALT (21 - 72 U/L) 22 Alkaline Phosphatase (< 127 U/L) 54 Troponin I (<0.11 ng/ml) 0.01 Total Protein (6.3 - 8.2 g/dL) 4.9 L Albumin (3.5 - 5.0 g/dL) 2.8 L Amylase (30 - 110 U/L) 70 Lipase (23 - 300 U/L) 249 Hematology CBC w Diff NO MAN DIFF REQ WBC (4.8 - 10.8 /CUMM) 10.7 RBC (4.70 - 6.10 /CUMM) 3.13 L Hgb (14.0 - 18.0 G/DL) 10.2 L Hct (42 - 52 %) 30.1 L MCV (80.0 - 94.0 FL) 96.2 H MCH (27.0 - 31.0 PG) 32.5 H MCHC (33.0 - 37.0 G/DL) 33.8 RDW (11.5 - 14.5 %) 14.0 Plt Count (130 - 400 /CUMM) 320 MPV (7.4 - 10.4 FL) 8.0 Gran % (42.2 - 75.2 %) 90.7 H Lymphocytes % (20.5 - 51.1 %) 6.3 L Monocytes % (1.7 - 9.3 %) 2.8 Eosinophils % (0 - 5 %) 0.1 Basophils % (0.0 - 2.0 %) 0.1 Absolute Granulocytes (1.4 - 6.5 /CUMM) 9.7 H Absolute Lymphocytes (1.2 - 3.4 /CUMM) 0.7 L Absolute Monocytes (0.10 - 0.60 /CUMM) 0.3 Absolute Eosinophils (0.0 - 0.7 /CUMM) 0 Absolute Basophils (0.0 - 0.2 /CUMM) 0 Imaging/Other Studies: 10/23/17: EKG at 7:21 a.m.- NSR @ 87, LAD, borderline prolonged QT interval, NSST inflat. 10/23/17: EKG at 2:35 p.m.- NSR @ 89, otherwise similar to above. 10/23/17: XRY-PORTABLE CHEST XRAY- No acute pulmonary disease. 10/24/17: *EGD with clipping of oozing artery in DU at floor of duodenal bulb- Impression: 1. 1 cm duodenal ulcer at the floor of the duodenal bulb, with oozing artery, successfully treated with *[place] [employer] Resolution Clip 1, which deployed in excellent location. Adjacent contralateral clean-based superficial 1 cm duodenal ulcer, left intact. 2. Antral gastritis, biopsies deferred. 3. Patent, incidental lower esophageal ring at the Z line at 35 cm, left intact. 4. 4 cm sliding hiatal hernia pouch, from 35-39 cm.
--- NOTE | 2017-10-25 13:37 | ECHOCARDIOGRAM REPORT ---
TARA SAMS Age: 72 : 1945 Gender: M Exam Date: 10/24/2017 16:13 Exam Location: [address] Ht (in): 70 Wt (lb): 160 BSA: 1.89 BP: 102 / 54 Ordering Physician: Arlen Dominguez MD Referring Physician: Alfonzo Gloria MD Technologist: Alda Farley [facility] Room Number: 184-01 Indications: LV FUNCTION AFTER ACS Rhythm: Technical Quality: good FINDINGS Left Ventricle Normal left ventricular size, wall thickness and systolic function with no obvious regional wall motion abnormalities. Diastolic filling pattern is consistent with impaired LV relaxation. The ejection fraction is visually estimated at 60%. Right Ventricle The right ventricle is normal in size and function. Right Atrium The right atrium is normal in size. Left Atrium The left atrium is normal in size. The interatrial septum is intact. Mitral Valve The mitral valve is normal in structure and function. There is no mitral regurgitation. Aortic Valve Structurally normal aortic valve without significant sclerosis or stenosis. There is no aortic regurgitation. Tricuspid Valve The tricuspid valve is normal in structure and function. There is trace tricuspid regurgitation. Pulmonary artery systolic pressure is normal. Pulmonic Valve Structurally normal pulmonic valve. There is no pulmonic regurgitation. Pericardium Normal pericardium without effusion. No pleural effusion. Great Vessels Normal aortic root dimension. The aortic arch and great vessels are well seen and are normal. CONCLUSIONS 1. Normal EF of 60% with impaired LV relaxation. 2. Trace tricuspid regurgitation. Shayne Pompa M.D. (Electronically Signed) Final Date: 25 October 2017 13:36 MEASUREMENTS (Male / Female) Normal Values 2D ECHO LV Diastolic Diameter PLAX 3.5 cm 4.2 - 5.9 / 3.9 - 5.3 cm LV Systolic Diameter PLAX 2.3 cm 2.1 - 4.0 cm LV Fractional Shortening PLAX 34.3 % 25 - 46 % LV Ejection Fraction 2D Teich 64.4 % IVS Diastolic Thickness 0.9 cm LVPW Diastolic Thickness 0.8 cm LV Relative Wall Thickness 0.5 RV Internal Dim ED PLAX 2.6 cm 1.9 - 3.8 cm LVOT Diameter 2.3 cm Aortic Root Diameter 3.6 cm LA Systolic Diameter LX 2.6 cm 3.0 - 4.0 / 2.7 - 3.8 cm LA Volume 32.0 cm 18 - 58 / 22 - 52 cm Ascending Aorta Diameter 3.5 cm DOPPLER AV Peak Velocity 120.0 cm/s AV Peak Gradient 5.8 mmHg AV Mean Velocity 83.4 cm/s AV Mean Gradient 3.0 mmHg AV Velocity Time Integral 20.5 cm LVOT Peak Velocity 98.7 cm/s LVOT Peak Gradient 3.9 mmHg LVOT Mean Velocity 61.3 cm/s LVOT Mean Gradient 2.0 mmHg LVOT Velocity Time Integral 16.0 cm LVOT Stroke Volume 66.5 cm AV Area Cont Eq vti 3.2 cm AV Area Cont Eq pk 3.4 cm MV Peak Velocity 87.8 cm/s MV Peak Gradient 3.1 mmHg MV Mean Velocity 57.2 cm/s MV Mean Gradient 1.0 mmHg Mitral E Point Velocity 59.2 cm/s Mitral A Point Velocity 75.0 cm/s Mitral E to A Ratio 0.8 MV PHT Velocity 73.8 cm/s MV Deceleration Mccormick 284.0 cm/s MV Pressure Half Time 78.0 ms MV Area PHT 2.8 cm MV Deceleration Time 269.0 ms TR Peak Velocity 209.0 cm/s TR Peak Gradient 17.5 mmHg Right Atrial Pressure 5.0 mmHg Pulmonary Artery Systolic Pressu 22.5 mmHg Right Ventricular Systolic Press 22.5 mmHg PV Peak Velocity 114.0 cm/s PV Peak Gradient 5.2 mmHg PV Mean Velocity 82.3 cm/s PV Mean Gradient 3.0 mmHg PV Velocity Time Integral 17.8 cm LV E' Lateral Velocity 9.2 cm/s Mitral E to LV E' Lateral Ratio 6.4 LV E' Septal Velocity 6.8 cm/s Mitral E to LV E' Septal Ratio 8.7
--- NOTE | 2017-10-25 13:57 | PN- Cardiology ---
Subjective Subjective: No complaints. Objective Vital Signs and I&Os Vital Signs Date Time Temp Pulse Resp B/P B/P Pulse O2 O2 Flow FiO2 Mean Ox Delivery Rate 10/25 0657 98.2 82 20 100/60 98 Room Air 10/24 2246 98.2 92 16 100/60 99 Room Air 10/24 1440 99.0 97 16 92/50 96 Room Air Intake & Output 10/25 1600 10/25 0800 10/25 0000 10/24 1600 10/24 0800 10/24 0000 Intake Total 110 340 20 100 200 Output Total 175 600 550 325 Balance -65 -260 -530 -225 200 Intake, IV 10 340 20 100 Intake, Oral 100 0 200 Number 1 Bowel Movements Output, Urine 175 600 550 325 Patient 160 lb Weight Weight Reported by Patient Measurement Method Physical Exam: Well-developed, well-nourished, pale-appearing elderly male in no acute distress. Vital signs: See above. Neck: No JVD, no bruits. Lungs: Clear to auscultation bilaterally. Heart: S1, S2 with no murmur, gallop, or rub appreciated. Abdomen: Soft, nontender, positive bowel sounds. Extremities: No edema. Current Medications: Current Medications Sig/Adams Start time Last Medication Dose Route Stop Time Status Admin Acetaminophen 650 MG Q6P PRN 10/23 0945 AC 10/25 PO 0758 Acetaminophen 1,000 MG Q6P PRN 10/23 0945 AC IV Atorvastatin Calcium 10 MG 1700 10/23 1700 AC 10/24 PO 1704 Dextrose/Sodium 1,000 ML Q13H 10/24 1715 AC 10/25 Chloride IV 0546 Oxycodone/ 1 TAB Q6P PRN 10/23 0945 AC Acetaminophen PO Pantoprazole Sodium 80 MG Q10H 10/24 1430 AC 10/25 Dextrose/Water 100 ML IV 1335 Pantoprazole Sodium 40 MG BID 10/23 2200 DC 10/24 IV 0840 Patient Medication 1 ED ONE ONE 10/24 1415 DC Teaching ED 10/24 1416 Phenol 2 SPRAY Q2P PRN 10/24 1645 AC 10/24 EXT 2222 Results Last 48 Hrs of Labs/Mics: Laboratory Tests 10/25/17 1215: Stool H. pylori Ag Pending 10/25/17 0635: Anion Gap 7, Estimated GFR > 60, BUN/Creatinine Ratio 33.3 H, CBC w Diff NO MAN DIFF REQ, RBC 2.09 L, MCV 96.3 H, MCH 32.9 H, MCHC 34.1, RDW 14.9 H, MPV 7.9 , Gran % 67.9, Lymphocytes % 23.2, Monocytes % 7.6, Eosinophils % 1.2, Basophils % 0.1, Absolute Granulocytes 2.5, Absolute Lymphocytes 0.9 L, Absolute Monocytes 0.3, Absolute Eosinophils 0, Absolute Basophils 0 10/24/17 1800: CBC w Diff NO MAN DIFF REQ, RBC 2.43 L, MCV 96.2 H, MCH 33.1 H, MCHC 34.4, RDW 14.2, MPV 7.9, Gran % 78.8 H, Lymphocytes % 15.5 L, Monocytes % 5.5, Eosinophils % 0.1, Basophils % 0.1, Absolute Granulocytes 5.9, Absolute Lymphocytes 1.2, Absolute Monocytes 0.4, Absolute Eosinophils 0, Absolute Basophils 0 10/24/17 1015: Anion Gap 10, Estimated GFR > 60, BUN/Creatinine Ratio 55.6 H, CBC w Diff NO MAN DIFF REQ, RBC 2.68 L, MCV 96.4 H, MCH 32.1 H, MCHC 33.3, RDW 13.8, MPV 7.9, Gran % 63.5, Lymphocytes % 29.3, Monocytes % 6.1, Eosinophils % 0.6, Basophils % 0.5, Absolute Granulocytes 2.9, Absolute Lymphocytes 1.3, Absolute Monocytes 0.3, Absolute Eosinophils 0, Absolute Basophils 0 10/24/17 0240: Troponin I 0.02, RBC 2.16 L, MCV 96.6 H, MCH 32.7 H, MCHC 33.9, RDW 14.2, MPV 8.1, Gran % 71.0, Lymphocytes % 21.9, Monocytes % 6.4, Eosinophils % 0.4, Basophils % 0.3, Absolute Granulocytes 4.4, Absolute Lymphocytes 1.4, Absolute Monocytes 0.4, Absolute Eosinophils 0, Absolute Basophils 0 10/23/17 1600: CBC w Diff NO MAN DIFF REQ, RBC 2.72 L, MCV 95.9 H, MCH 32.8 H, MCHC 34.2, RDW 13.8, MPV 7.9, Gran % 62.4, Lymphocytes % 28.5, Monocytes % 8.1, Eosinophils % 0.2, Basophils % 0.8, Absolute Granulocytes 2.9, Absolute Lymphocytes 1.3, Absolute Monocytes 0.4, Absolute Eosinophils 0, Absolute Basophils 0 10/23/17 1448: Hemoglobin A1c 6.1 H, Magnesium 1.8, Troponin I < 0.01, TSH 0.508 Recent Imaging Studies: Echocardiogram 10/24/2017: 1. Normal EF of 60% with impaired LV relaxation. 2. Trace tricuspid regurgitation. Assessment/Plan Assessment/Plan [id number] w/ hx HLD & CAD s/p NM's x3 (1994, 2000, 2010) w/ multiple stents placed for which he has been maintained on dual antiplatelet therapy (ASA, clopidogrel) and who presented to the ED with an upper GI bleed. Recommendations: * Continue on telemetry. * Hold antiplatelet therapy for the short-term. Discussed restarting antiplatelet therapy with gastroenterology (Hoiwe Bennett M.D.) and he felt to be reasonable to restart anticoagulation one week from the BICAP cautery and clipping. * Given extensive cardiac history, maintain hemoglobin at or above 8.0 g/dl. * Continue to follow-up on GI recommendations. * Continue on his other cardiac medications given his extensive history of CAD. * DVT prophylaxis. Continue telemetry? Yes
[2017-10-25 14:30] VITALS: BP 112/62
[2017-10-25 18:57] LABS: ABSOLUTE BASOPHIL COUNT 0 /CUMM (0.0-0.2); ABSOLUTE EOSINOPHIL COUNT 0.1 /CUMM (0.0-0.7); ABSOLUTE GRANULOCYTE CT 2.5 /CUMM (1.4-6.5); ABSOLUTE MONOCYTE COUNT 0.3 /CUMM (0.10-0.60); BASOPHIL % 0.4 % (0.0-2.0); EOSINOPHIL % 1.4 % (0-5); MEAN CORPUSCULAR HGB 32.8 PG (27.0-31.0); MEAN CORPUSCULAR HGB CONC 34.1 G/DL (33.0-37.0); MEAN CORPUSCULAR VOLUME 96.1 FL (80.0-94.0); MEAN PLATELET VOLUME 7.9 FL (7.4-10.4); PLATELET COUNT 184 /CUMM (130-400); RBC DISTRIBUTION WIDTH 14.1 % (11.5-14.5); WHITE BLOOD CELL COUNT 3.8 /CUMM (4.8-10.8)
[2017-10-25 18:59] LABS: HEMATOCRIT 25.5 % (42-52); RED BLOOD CELL CT 2.66 /CUMM (4.70-6.10)
[2017-10-25 22:56] VITALS: BP 108/60
[2017-10-26 06:20] VITALS: BP 140/68
--- NOTE | 2017-10-26 07:45 | PN- Housestaff ---
See Addendum Subjective Follow-up For: Upper GI bleed status post cauterization/clipping Complaints: no complaints Tele-Events Since Last Visit: No any overnight events Subjective: Patient is seen and examined at the bedside. He looked pale, but denies of any bloody diarrhea or vomiting. Review of Systems Constitutional: Denies: no symptoms. Objective Last 24 Hrs of Vital Signs/I&O Vital Signs Date Time Temp Pulse Resp B/P B/P Pulse O2 O2 Flow FiO2 Mean Ox Delivery Rate 10/26 06 97.8 80 20 140/68 98 Room Air 10/25 2256 98.0 83 18 108/60 98 Room Air 10/25 1430 99.0 82 18 112/62 99 Room Air Intake & Output 10/26 1600 10/26 0800 10/26 0000 Intake Total 600 Output Total 700 850 Balance -100 -850 Intake, Oral 600 Output, Urine 700 850 Patient 72.575 kg Weight Physical Exam General Appearance: Alert, Oriented X3, Cooperative, No Acute Distress Skin: pale Cardiovascular: Normal S1, Normal S2 Lungs: Clear to Auscultation, Normal Air Movement Abdomen: Soft, No Tenderness Extremities: No Clubbing, No Cyanosis, No Edema Current Medications: Current Medications Sig/Adams Start time Last Medication Dose Route Stop Time Status Admin Acetaminophen 650 MG Q6P PRN 10/23 0945 AC 10/25 PO 0758 Acetaminophen 1,000 MG Q6P PRN 10/23 0945 AC IV Atorvastatin Calcium 10 MG 1700 10/23 1700 AC 10/25 PO 1617 Dextrose/Sodium 1,000 ML Q13H 10/24 1715 DC 10/25 Chloride IV 1837 Oxycodone/ 1 TAB Q6P PRN 10/23 0945 AC Acetaminophen PO Pantoprazole Sodium 80 MG Q10H 10/24 1430 AC 10/26 Dextrose/Water 100 ML IV 0825 Phenol 2 SPRAY Q2P PRN 10/24 1645 AC 10/24 EXT 2222 Potassium Chloride 40 MEQ BID 10/26 1000 AC 10/26 PO 10/26 2201 0939 Last 24 Hrs of Lab/Uriel Results Last 24 Hrs of Labs/Mics: Laboratory Tests 10/26/17 0627: Anion Gap 8, Estimated GFR > 60, BUN/Creatinine Ratio 20.0, CBC w Diff NO MAN DIFF REQ, RBC 2.62 L, MCV 97.0 H, MCH 33.0 H, MCHC 34.0, RDW 14.4, MPV 8.0, Gran % 66.5, Lymphocytes % 22.2, Monocytes % 8.3, Eosinophils % 2.4, Basophils % 0.6, Absolute Granulocytes 2.3, Absolute Lymphocytes 0.8 L, Absolute Monocytes 0.3, Absolute Eosinophils 0.1, Absolute Basophils 0 10/25/17 1805: CBC w Diff NO MAN DIFF REQ, RBC 2.66 L, MCV 96.1 H, MCH 32.8 H, MCHC 34.1, RDW 14.1, MPV 7.9, Gran % 65.0, Lymphocytes % 24.8, Monocytes % 8.4, Eosinophils % 1.4, Basophils % 0.4, Absolute Granulocytes 2.5, Absolute Lymphocytes 1.0 L, Absolute Monocytes 0.3, Absolute Eosinophils 0.1, Absolute Basophils 0 10/25/17 1215: Stool H. pylori Ag Pending Assessment/Plan Assessment: This is a 72-year-old male with past medical history significant for coronary artery disease status post bare metal stents 4, on dual antiplatelet agents aspirin and Plavix since 1995, hypertension, hyperlipidemia presented to the [facility] emergency department for evaluation of black tarry stools. Patient denies active complaints. He wanted to go home. Vital signs -temperature 97.8, pulse 80, respiratory 20, blood pressure 140/68, SPO2 98 on room air. Assessment and plan- * Discussed with Dr. Ramírez, she advised for total 3 days of IV pantoprazole. According to recent research th 50% chances of rebleeding in for 72 hours after cauterization. * We will advised to take full liquid diet and if patient able to tolerate an full diet * We will stop IV fluids * We will continue patient on IV Protonix * Watch for the bleeding * Monitoring of CBC. Problem List: 1. Anemia 2. Duodenal ulcer hemorrhage Pain Ratin Pain Location: n/a Pain Goal: Remain pain free Pain Plan: n/a Tomorrow's Labs & Rationales: cbc, bep for f/u
[2017-10-26 08:18] LABS: ABSOLUTE BASOPHIL COUNT 0 /CUMM (0.0-0.2); ABSOLUTE EOSINOPHIL COUNT 0.1 /CUMM (0.0-0.7); ABSOLUTE GRANULOCYTE CT 2.3 /CUMM (1.4-6.5); ABSOLUTE LYMPH COUNT 0.8 /CUMM (1.2-3.4); ABSOLUTE MONOCYTE COUNT 0.3 /CUMM (0.10-0.60); BASOPHIL % 0.6 % (0.0-2.0); EOSINOPHIL % 2.4 % (0-5); GRANULOCYTE % 66.5 % (42.2-75.2); HEMATOCRIT 25.4 % (42-52); PLATELET COUNT 161 /CUMM (130-400); RBC DISTRIBUTION WIDTH 14.4 % (11.5-14.5); RED BLOOD CELL CT 2.62 /CUMM (4.70-6.10); WHITE BLOOD CELL COUNT 3.5 /CUMM (4.8-10.8)
[2017-10-26 14:44] VITALS: BP 124/70
[2017-10-26 22:40] VITALS: BP 112/70; BP 148/82
[2017-10-27 06:30] VITALS: BP 142/92
[2017-10-27 07:44] LABS: ABSOLUTE BASOPHIL COUNT 0 /CUMM (0.0-0.2); ABSOLUTE EOSINOPHIL COUNT 0.1 /CUMM (0.0-0.7); ABSOLUTE GRANULOCYTE CT 3.2 /CUMM (1.4-6.5); ABSOLUTE LYMPH COUNT 0.6 /CUMM (1.2-3.4); ABSOLUTE MONOCYTE COUNT 0.3 /CUMM (0.10-0.60); BASOPHIL % 0.4 % (0.0-2.0); EOSINOPHIL % 1.9 % (0-5); GRANULOCYTE % 75.3 % (42.2-75.2); HEMATOCRIT 26.2 % (42-52); MEAN CORPUSCULAR HGB 33.5 PG (27.0-31.0); MEAN CORPUSCULAR HGB CONC 34.6 G/DL (33.0-37.0); MEAN CORPUSCULAR VOLUME 96.8 FL (80.0-94.0); MEAN PLATELET VOLUME 8.2 FL (7.4-10.4); PLATELET COUNT 178 /CUMM (130-400); RBC DISTRIBUTION WIDTH 14.7 % (11.5-14.5); RED BLOOD CELL CT 2.71 /CUMM (4.70-6.10); WHITE BLOOD CELL COUNT 4.3 /CUMM (4.8-10.8)
--- NOTE | 2017-10-27 10:59 | PN- Housestaff ---
Racheal FRY,Lindy 10/27/17 1059: Subjective Follow-up For: Duodenal bulb ulcer bleed s/p clipping Subjective: Seen and examined Stable without any complaints. Last BM yesterday with improvement in the stool appearence, still black. Review of Systems Constitutional: Reports: see HPI. Comments: ROS negative except the above Objective Last 24 Hrs of Vital Signs/I&O Vital Signs Date Time Temp Pulse Resp B/P B/P Pulse O2 O2 Flow FiO2 Mean Ox Delivery Rate 10/27 0630 98.7 85 20 142/92 99 Room Air 10/26 2240 97.8 77 18 112/70 100 Room Air 10/26 1444 98.9 84 20 124/70 99 Room Air Intake & Output 10/27 1600 10/27 0800 10/27 0000 Intake Total 180 10 Output Total 200 450 Balance -20 -440 Intake, IV 80 10 Intake, Oral 100 Output, Urine 200 450 Physical Exam General Appearance: Alert, Oriented X3, Cooperative, No Acute Distress Skin: No Rashes, No Breakdown HEENT: Atraumatic, PERRLA, EOMI Neck: Supple, No JVD Cardiovascular: Normal S1, Normal S2 Lungs: Clear to Auscultation, Normal Air Movement Abdomen: Normal Bowel Sounds, Soft, No Tenderness Neurological: Normal Gait, Normal Speech, Strength at 5/5 X4 Ext, Normal Tone Extremities: No Clubbing, No Cyanosis, No Edema Current Medications: Current Medications Sig/Adams Start time Last Medication Dose Route Stop Time Status Admin Acetaminophen 650 MG Q6P PRN 10/23 0945 DCD 10/25 PO 0758 Acetaminophen 1,000 MG Q6P PRN 10/23 0945 DCD IV Atorvastatin Calcium 10 MG 1700 10/23 1700 DCD 10/26 PO 1540 Oxycodone/ 1 TAB Q6P PRN 10/23 0945 DCD Acetaminophen PO Pantoprazole Sodium 80 MG Q10H 10/24 1430 DC 10/27 Dextrose/Water 100 ML IV 0515 Phenol 2 SPRAY Q2P PRN 10/24 1645 DCD 10/24 EXT 2222 Last 24 Hrs of Lab/Uriel Results Last 24 Hrs of Labs/Mics: Laboratory Tests 10/27/17 0658: Anion Gap 6, Estimated GFR > 60, BUN/Creatinine Ratio 11.1, CBC w Diff NO MAN DIFF REQ, RBC 2.71 L, MCV 96.8 H, MCH 33.5 H, MCHC 34.6, RDW 14.7 H, MPV 8.2 , Gran % 75.3 H, Lymphocytes % 14.4 L, Monocytes % 8.0, Eosinophils % 1.9, Basophils % 0.4, Absolute Granulocytes 3.2, Absolute Lymphocytes 0.6 L, Absolute Monocytes 0.3, Absolute Eosinophils 0.1, Absolute Basophils 0 Assessment/Plan Assessment: This is a 72-year-old male with past medical history significant for coronary artery disease status post bare metal stents 4, on dual antiplatelet agents aspirin and Plavix since 1995, hypertension, hyperlipidemia presented to the [facility] emergency department for evaluation of black tarry stools. Problem list 1. Upper GI bleed secondary to duodenal bulb ulcer - s/p EGD and clipping 2. History of coronary artery disease with prior VT and remote PCIs 3. Hyperlipidemia Duodenal bulb ulcer s/p EGD with clipping Patient was on IV protonix drip after the procedure and remianed stable hemodynamically stable. We advanced diet to regular today which he tolerated very well. His H&H remianed stable. Discontinued drip this afternoon. started on protonix 40mg BID. Needs to follow up with as outpatient. Stable for discharge today CAD s/p proir VT and PCI's last being in 2014 Patient was dual antiplatelet therapy which were held due to GI bleed. We will restart a week after the procedure on 11/01/17. He needs to follow up with cardiology as outpatient DVT prophylaxis ALPS given bleed Code status Full code Problem List: 1. GI bleed 2. Full code status 3. History of VT (myocardial infarction) Pain Ratin Pain Location: n/a Pain Goal: Pain 4 or less Pain Plan: tylenol Tomorrow's Labs & Rationales: none Yeni Gallego MD 10/27/17 1130: Attending MD Review Statement Attending Statement Attending MD Statement: examined this patient, discuss w/resident/PA/INCINERATOR PLANT LABORER, agreed w/resident/PA/INCINERATOR PLANT LABORER, discussed with nursing, reviewed images, amended to note Attending Assessment/Plan: 72 year old pleasant male with past medical history significant for coronary artery disease status post PCI with 4 stents, on dual antiplatelet therapy since 1995, hypertension, hyperlipidemia has been admitted to the floor for acute upper GI bleed status post endoscopy. Patient went upper endoscopy by Dr. Mistry on October 24 and found to have a bleeding vessel which was cauterized and clipped. Patient was seen and examined on the bedside and reported that he is doing fine and expressed his wishes going home today. Vitals stable and unremarkable physical examination, H&H stable and currently on IV Protonix twice a day and gradually advancing to full liquids from care fluids and tolerating well. Discussed with the youth development specialist who recommended of keeping the patient for another 24 hours with IV Protonix and gradually uptitrating the diet. Antiplatelet agents on hold and cardiology to recommend restarting once patient is stabilized. Hemodynamically stable and not in any distress, has passed his bowel. Touch base with gastro if patient could be discharged today later this afternoon and with reliability technician for further recommendations regarding restarting his antiplatelets ( likely a week after his endoscopic procedure ).
--- NOTE | 2017-10-27 11:09 | Patient Discharge Instructions ---
Discharge Instructions General Discharge Information You were seen/treated for: GI bleeding Special Instructions: Please follow up with PCP in a week Please follow up with in a week Please follow up with your Research Administrator in a week Please restart taking Antiplatelet therapy in a week -- on 11/01/17 Diet Recommended Diet: Heart Healthy Activity Full Activity/No Limits: Yes Activity Self Limited: Yes Acute Coronary Syndrome Inclusion Criteria At DC or during hospital stay patient has or had the following: ACS DIAGNOSIS No Discharge Core Measures Meds if any: Prescribed or Continued at Discharge Meds if any: NOT Prescribed or Continued at Discharge Congestive Heart Failure Inclusion Criteria At DC or during hospital stay patient has or had the following: CHF DIAGNOSIS No Discharge Core Measures Meds if any: Prescribed or Continued at Discharge Meds if any: NOT Prescribed or Continued at Discharge Cerebrovascular accident Inclusion Criteria At DC or during hospital stay patient has or had the following: CVA/TIA Diagnosis No Discharge Core Measures Meds if any: Prescribed or Continued at Discharge Meds if any: NOT Prescribed or Continued at Discharge Venous thromboembolism Inclusion Criteria VTE Diagnosis No VTE Type NONE VTE Confirmed by (Test) NONE Discharge Core Measures - Per Current guidelines, there needs to be overlap - treatment for the first 5 days of Warfarin therapy. - If discharged on Warfarin prior to 5 days of - overlap therapy, the patient will need to be - assessed for post discharge needs including - *Post discharge parental anticoagulation - *Warfarin and/or parental anticoagulation education - *Follow up date to check INR post discharge At least 5 days overlap therapy as Inpatient No Meds if any: Prescribed or Continued at Discharge Note: Overlap Therapy is Warfarin and Anticoagulant Meds if any: NOT Prescribed or Continued at Discharge
--- NOTE | 2017-10-27 12:40 | PN- Cardiology ---
Subjective Subjective: The patient is resting comfortably without complaint. Objective Vital Signs and I&Os Vital Signs Date Time Temp Pulse Resp B/P B/P Pulse O2 O2 Flow FiO2 Mean Ox Delivery Rate 10/27 0630 98.7 85 20 142/92 99 Room Air 10/26 2240 97.8 77 18 112/70 100 Room Air 10/26 1444 98.9 84 20 124/70 99 Room Air Intake & Output 10/27 1600 10/27 0800 10/27 0000 10/26 1600 10/26 0800 10/26 0000 Intake Total 180 10 680 600 Output Total 200 450 450 700 850 Balance -20 -440 230 -100 -850 Intake, IV 80 10 80 Intake, Oral 100 600 600 Output, Urine 200 450 450 700 850 Patient 160 lb Weight Physical Exam: General: no apparent distress. Alert. Eyes: No obvious scleral icterus. HEENT: No jugular venous distention or abnormal jugular venous pulsations. Cardiovascular: Normal intensity S1/S2. Regular Respiratory: Lungs clear to auscultation bilaterally. Abdomen: Soft, nontender with no guarding or rebound tenderness. Musculoskeletal: No clubbing or cyanosis noted, no edema Skin: No obvious rashes or ulcerations. Neurologic: No gross focal deficits noted. Current Medications: Current Medications Sig/Adams Start time Last Medication Dose Route Stop Time Status Admin Acetaminophen 650 MG Q6P PRN 10/23 0945 AC 10/25 PO 0758 Acetaminophen 1,000 MG Q6P PRN 10/23 0945 AC IV Atorvastatin Calcium 10 MG 1700 10/23 1700 AC 10/26 PO 1540 Oxycodone/ 1 TAB Q6P PRN 10/23 0945 AC Acetaminophen PO Pantoprazole Sodium 80 MG Q10H 10/24 1430 AC 10/27 Dextrose/Water 100 ML IV 0515 Phenol 2 SPRAY Q2P PRN 10/24 1645 AC 10/24 EXT 2222 Potassium Chloride 40 MEQ ONCE ONE 10/26 2045 DC 10/26 PO 10/26 204 2149 Potassium Chloride 40 MEQ BID 10/26 1000 DC 10/26 PO 10/26 2201 0939 Results Last 48 Hrs of Labs/Mics: Laboratory Tests 10/27/17 0658: Anion Gap 6, Estimated GFR > 60, BUN/Creatinine Ratio 11.1, CBC w Diff NO MAN DIFF REQ, RBC 2.71 L, MCV 96.8 H, MCH 33.5 H, MCHC 34.6, RDW 14.7 H, MPV 8.2 , Gran % 75.3 H, Lymphocytes % 14.4 L, Monocytes % 8.0, Eosinophils % 1.9, Basophils % 0.4, Absolute Granulocytes 3.2, Absolute Lymphocytes 0.6 L, Absolute Monocytes 0.3, Absolute Eosinophils 0.1, Absolute Basophils 0 10/26/17 0627: Anion Gap 8, Estimated GFR > 60, BUN/Creatinine Ratio 20.0, CBC w Diff NO MAN DIFF REQ, RBC 2.62 L, MCV 97.0 H, MCH 33.0 H, MCHC 34.0, RDW 14.4, MPV 8.0, Gran % 66.5, Lymphocytes % 22.2, Monocytes % 8.3, Eosinophils % 2.4, Basophils % 0.6, Absolute Granulocytes 2.3, Absolute Lymphocytes 0.8 L, Absolute Monocytes 0.3, Absolute Eosinophils 0.1, Absolute Basophils 0 10/25/17 1805: CBC w Diff NO MAN DIFF REQ, RBC 2.66 L, MCV 96.1 H, MCH 32.8 H, MCHC 34.1, RDW 14.1, MPV 7.9, Gran % 65.0, Lymphocytes % 24.8, Monocytes % 8.4, Eosinophils % 1.4, Basophils % 0.4, Absolute Granulocytes 2.5, Absolute Lymphocytes 1.0 L, Absolute Monocytes 0.3, Absolute Eosinophils 0.1, Absolute Basophils 0 Recent Imaging Studies: Telemetry tracings were personally reviewed and shows sinus rhythm Assessment/Plan Assessment/Plan 1. GI bleed 2. History of coronary artery disease with prior OR and remote PCIs 3. Hyperlipidemia 4. Status post EGD with clipping Patient's hemoglobin is stable. He remains hemodynamically stable with no sustained arrhythmias on telemetry. Plan is to resume his antiplatelet therapy one week post clipping. Haja Mahmood MD [facility] Continue telemetry? No
[2017-10-27] MEDS ORDERED: PROTONIX40 M3 PO (13:32)
== END 2017-10-27 15:30 | DRG 378 ==
LOC: ERH 06:54 → 1NO 08:16 → ERHI 08:16 → ENRESERV 20:26 → ENTRNSPT 20:49 → 1NO 20:58 → CMPTRNSPT 21:43 → ENPENDDIS 10-27 14:05 → 1NO 10-27 15:30
PROVIDERS: Hospitalist; Internal Medicine Adolescent Medicine; Pediatrics; Student in an Organized Health Care Education/Training Program
PROC: 0W3P8ZZ Control Bleeding in Gastrointestinal Tract, Via Natural or Artificial Opening Endoscopic (ICD-10-PCS; principal; 2017-10-24)
PROC: 30233N1 Transfusion of Nonautologous Red Blood Cells into Peripheral Vein, Percutaneous Approach (ICD-10-PCS; 2017-10-24)
DX: K26.4 Chronic or unspecified duodenal ulcer with hemorrhage (principal); E87.2 Acidosis; R55 Syncope and collapse; E86.0 Dehydration; I25.10 Atherosclerotic heart disease of native coronary artery without angina pectoris; I10 Essential (primary) hypertension; I25.2 Old myocardial infarction; Z95.5 Presence of coronary angioplasty implant and graft; Z79.01 Long term (current) use of anticoagulants; Z79.82 Long term (current) use of aspirin; E78.5 Hyperlipidemia, unspecified; Z87.891 Personal history of nicotine dependence; J11.1 Influenza due to unidentified influenza virus with other respiratory manifestations; K44.9 Diaphragmatic hernia without obstruction or gangrene
CPT/HCPCS: 1NP; 87338; 36415; 36592; 71045; 82436; 86920; 87804; 87804-59; 93005; 93010; 93306; 96361; 96374; J0131; J7040; J7042; P9016